=== PATIENT | male | born 1935 | race Caucasian/White ===

== ENCOUNTER 2019-08-04 12:39 | Outpatient (CLI) | payer MEDICARE, SELFPAY ==
--- NOTE | ~2019-08-04 | XR_ITS ---
XR chest 2V 08/04/2019 14:32 Indication: Shortness of breath and cough Procedure: 2 view chest Comparison: No prior studies for comparison. Findings: Cardiomegaly. Pacemaker lead in the right ventricle. No focal air space disease, pulmonary edema, pleural effusion or suspected pneumothorax. There are changes of the clavicle suggesting bilat eral osteotomy. No acute osseous abnormality. Impression: 1: No acute cardiopulmonary disease. Reviewed, dictated and finalized at location A. Impression: 1: No acute cardiopulmonary disease.
[2019-08-04 13:33] LABS: Blood Urea Nitrogen 18 mg/dL (9-20); Calcium 9.3 mg/dL (8.4-10.2); Carbon Dioxide 25 mmol/L (22-30); Chloride 104 mmol/L (98-107); Estimated Glomerular Filt Rate > 60; Glucose 136 mg/dL (75-110); Sodium 139 mmol/L (137-145)
[2019-08-04 13:42] LABS: NT Pro B Type Natriuretic Pept 1300 PG/ML (5-100)
--- NOTE | 2019-08-29 14:24 | PFT_ITS ---
This report was moved to the correct visit, [id number], on August 31, 2019. Original report was signed by Dr. Ling Pepper on August 29, 2019 at 1424. PFT Interpretation PFT Interpretation: DOS: 08/04/2019 REQUESTING: Dr. Jag Zhong REASON FOR TESTING: Shortness of breath PULMONARY FUNCTION TESTS Results are not reproducible or reliable. The patient was able to produce only one complete post flow volume loop with many attempts, with maximal coaching. Spirometry: FEV1 is 76%, 2.22 L, mildly reduced. FVC is 75%, mildly reduced. FEV1% is 64%, normal for age. VJN30-65% is severely decreased at 43%. After bronchodilator, there is no significant improvement in flows. Lung volumes: Total lung capacity is 79%, mildly decreased. RV is 72%, normal. No air trapping. Airway resistance is 572%, increased. Diffusion: DLCO is 59%, moderately reduced. Flow volume loop: Mild scooping of the expiratory limb. IMPRESSION: Mild restrictive pattern, mild obstructive ventilatory impairment without response to bronchodilator. Increased airway resistance. Lack of response to bronchodilator should not preclude use if clinically indicated. Clinical correlation is recommended as the patient was not able to produce reliable results. Ling Pepper MD Report Initialized date/time: Ling Pepper MD 08/29/19 / 1424 Electronically signed by: Ling Pepper MD 08/29/19 1424 [facility]
--- NOTE | 2019-08-29 14:30 | MISC_ITS ---
Six Minute Walk This report was moved to the correct visit, [id number], on August 31, 2019. Original report was signed by Dr. Ling Pepper on August 29, 2019 at 1430. Six Minute Walk Six Minute Walk: DOS: 08/04/2019 REQUESTING: Dr. Jag Zhong REASONS FOR TESTING: Shortness of breath SIX MINUTE WALK This test was performed per ATS guidelines. The patient had an initial saturation of 97% on room air, and his heart rate was 64 beats per minute. He walked using a cane. After 4 minutes of walking he had to stop walking due to severe back pain. His lowest saturation was 92%, and the highest heart rate was 99. He walked a total of 250 feet, 76 meters, which is less than expected for his age. After recovery, saturation was 98% and pulse was 70. IMPRESSION: The patient performed as well as possible, however was not able to walk more than 4 minutes due to back pain. He did not have marlen hypoxemia, and did not qualify for supplemental oxygen with exertion. Report Initialized date/time: Ling Pepper MD 08/29/19 / 1430 Electronically signed by: Ling Pepper MD 08/29/19 1430 [facility]
== END 2019-08-04 12:40 | disposition home or self-care (01) ==
PROVIDERS: Visit Provider Internal Medicine Critical Care Medicine
DX: R06.02 Shortness of breath (principal)
CPT/HCPCS: 36415; 71046; 80048; 83880; 94060; 94618; 94726; 94729

== ENCOUNTER 2019-08-19 11:41 | Outpatient (CLI) | payer MEDICARE, SELFPAY ==
[2019-08-19 13:41] LABS: Blood Urea Nitrogen 24 mg/dL (9-20); Calcium 9.3 mg/dL (8.4-10.2); Carbon Dioxide 25 mmol/L (22-30); Chloride 106 mmol/L (98-107); Estimated Glomerular Filt Rate > 60; Glucose 114 mg/dL (75-110); Potassium 4.5 mmol/L (3.4-5.0); Sodium 139 mmol/L (137-145)
[2019-08-19 13:44] LABS: NT Pro B Type Natriuretic Pept 1350 PG/ML (5-100)
--- NOTE | 2019-08-29 14:14 | WPDPFTINT ---
PFT Interpretation PFT Interpretation: DOS: 08/04/2019 REQUESTING: Dr. Jag Zhong REASON FOR TESTING: Shortness of breath PULMONARY FUNCTION TESTS Results are not reproducible or reliable. The patient was able to produce only one complete post flow volume loop with many attempts, with maximal coaching. Spirometry: FEV1 is 76%, 2.22 L, mildly reduced. FVC is 75%, mildly reduced. FEV1% is 64%, normal for age. OIA30-91% is severely decreased at 43%. After bronchodilator, there is no significant improvement in flows. Lung volumes: Total lung capacity is 79%, mildly decreased. RV is 72%, normal. No air trapping. Airway resistance is 572%, increased. Diffusion: DLCO is 59%, moderately reduced. Flow volume loop: Mild scooping of the expiratory limb. IMPRESSION: Mild restrictive pattern, mild obstructive ventilatory impairment without response to bronchodilator. Increased airway resistance. Lack of response to bronchodilator should not preclude use if clinically indicated. Clinical correlation is recommended as the patient was not able to produce reliable results. Ling Pepper MD
--- NOTE | 2019-08-29 14:24 | WPDSIXMINUTE ---
Six Minute Walk Six Minute Walk: DOS: 08/04/2019 REQUESTING: Dr. Jag Zhong REASONS FOR TESTING: Shortness of breath SIX MINUTE WALK This test was performed per ATS guidelines. The patient had an initial saturation of 97% on room air, and his heart rate was 64 beats per minute. He walked using a cane. After 4 minutes of walking he had to stop walking due to severe back pain. His lowest saturation was 92%, and the highest heart rate was 99. He walked a total of 250 feet, 76 meters, which is less than expected for his age. After recovery, saturation was 98% and pulse was 70. IMPRESSION: The patient performed as well as possible, however was not able to walk more than 4 minutes due to back pain. He did not have marlen hypoxemia, and did not qualify for supplemental oxygen with exertion.
== END 2019-08-19 11:42 | disposition home or self-care (01) ==
PROVIDERS: Visit Provider Internal Medicine Critical Care Medicine
DX: R06.02 Shortness of breath (principal)
CPT/HCPCS: 36415; 80048; 83880

== ENCOUNTER 2023-01-08 00:57 | Observation (INO) | payer MEDICARE, SELFPAY ==
[2023-01-08] VITALS (20 sets, daily range): BP systolic 104–170; BP diastolic 60–87; PULSE 81–100; RESP 14–24; TEMP 35.6–36.8; O2SAT 95–100; BMI 31.1
--- NOTE | 2023-01-08 | ECHO_ITS ---
Patient Info Name: Erwin Neville Age: 87 years : 1935 Gender: Male Ht: 74 in Wt: 230 lbs BSA: 2.35 m2 HR: 88 bpm BP: 108 / 70 mmHg Heart Rhythm: Sinus Rhythm Technical Quality: Fair Exam Date: 01/08/2023 10:44 AM Exam Location: Echo Lab Patient Status: Outpatient Admit Date: 01/08/2023 Staff Ordering Physician: Bayron Ceron DO Interior Design Professional: Sam Brown RDCS Attending Provider: Rosa Riddle DO Referring Physician: Osmany HUFF; Exam Type: CA echo doppler color flow Study Info Indications - elevated troponin Complete two-dimensional, color flow and Doppler transthoracic echocardiogram is performed. Summary 1. Complete two-dimensional, color flow and Doppler transthoracic echocardiogram is performed. 2. Left ventricular chamber dimension is mildly enlarged. 3. Left ventricular systolic function is moderately globally reduced, estimated at 40-45%. 4. There is moderate concentric increased left ventricular wall thickness. 5. The left ventricular diastolic function is abnormal. 6. E/e' 16 is elevated. 7. Linear artifact in right ventricle suggestive of catheter(s), pacemaker lead(s), or ICD lead(s). 8. Left atrial chamber dimension is moderately enlarged. 9. Right atrial chamber dimension is moderately enlarged. 10. Linear artifact in the right atrium suggestive of catheter(s), pacemaker lead(s), or ICD lead(s). 11. There is mild aortic valve sclerosis. 12. The mitral valve has mildly calcified annulus. 13. There is mild to moderate mitral valve regurgitation. 14. There is moderate tricuspid valve regurgitation. 15. Mild pulmonary hypertension, estimated pulmonary arterial systolic pressure is 43 mmHg. 16. Normal inferior vena cava with <50% collapse upon inspiration consistent with elevated right atrial pressure, 10 mmHg. Left Ventricle E/e' 16 is elevated. Left ventricular systolic function is moderately globally reduced, estimated at 40-45%. Left ventricular chamber dimension is mildly enlarged. There is moderate concentric increased left ventricular wall thickness. The left ventricular diastolic function is abnormal. Right Ventricle Linear artifact in right ventricle suggestive of catheter(s), pacemaker lead(s), or ICD lead(s). Right ventricular chamber dimension is normal. Right ventricular systolic function is normal. Left Atria Left atrial chamber dimension is moderately enlarged. Right Atria Linear artifact in the right atrium suggestive of catheter(s), pacemaker lead(s), or ICD lead(s). Right atrial chamber dimension is moderately enlarged. Aortic Valve The aortic valve is trileaflet. There is mild aortic valve sclerosis. There is no aortic valve stenosis. There is no aortic valve regurgitation. Pulmonic Valve There is no pulmonic regurgitation. Mitral Valve The mitral valve has mildly calcified annulus. There is no mitral valve stenosis. There is mild to moderate mitral valve regurgitation. Tricuspid Valve There is moderate tricuspid valve regurgitation. Mild pulmonary hypertension, estimated pulmonary arterial systolic pressure is 43 mmHg. Pericardium/Pleural There is no pericardial effusion. Inferior Vena Cava Normal inferior vena cava with <50% collapse upon inspiration consistent with elevated right atrial pressure, 10 mmHg. Aorta The aortic root size at the sinus of Valsalva is normal. Left Ventricular Outflow Tract Name Value Normal
--- NOTE | ~2023-01-08 | CT_ITS ---
Noncontrast CT scan of the cervical spine Technique: Multiple contiguous axial [address] images of the cervical spine were obtained and rec onstructed in 2D sagittal and coronal planes on the acquisition scanner. Dose reduction technique was used on this scan by utilizing automated exposure control, adjustment of the mA and/or kV according to patient size. The dose-length product (DLP) was 646.30 mGy-cm. Clinical History: Pain Findings: No fracture identified. There is 3 mm anterolisthesis of C7 over T1. There is moderate dege nerative disc narrowing throughout the cervical spine. There is advanced degenerative changes reticul ation of the odontoid process with the anterior arch of C1. At C2-C3, there is mild disc osteophyte complex. There is mild left facet arthropathy. No marlen centr al canal stenosis or neural foraminal narrowing. At C3-C4, there is disc osteophyte complex resulting in moderate canal stenosis and probable element of cord compression. There is bilateral neural foraminal narrowing, with bilateral facet arthropathy, left worse than right. At C4-C5, there is minimal disc osteophyte complex without marlen canal stenosis. There is bilateral n eural foraminal narrowing, with mild bilateral facet arthropathy. At C5-C6, there is mild disc osteophyte complex. There is bilateral neural foraminal narrowing with b ilateral facet arthropathy. At C6-C7, there is minimal bilateral neural foraminal narrowing with bilateral facet arthropathy. No marlen central canal stenosis. No prevertebral soft tissue swelling. Impression: No fracture. 3 mm anterolisthesis of C7 over T1. Moderate to advanced degenerative spondylosis. Findings are worst at C3-C4, where there is probable m oderate canal stenosis and element of cord compression. Multilevel neural foraminal narrowing present . Reviewed, dictated and finalized at location M. OL SERGEANT Impression: No fracture. 3 mm anterolisthesis of C7 over T1. Moderate to advanced degenerative spondylosis. Findings are worst at C3-C4, whe re there is probable moderate canal stenosis and element of cord compression. M ultilevel neural foraminal narrowing present.
--- NOTE | ~2023-01-08 | CT_ITS ---
CT head without contrast Indication: Trauma Technique: Serial scans were obtained through the brain without the administration of contrast. Dose reduction technique was used on this scan by utilizing automated exposure control and iterative recon struction technique. The dose-length product (DLP) was 681.00 mGy-cm. Findings: There is no evidence of intracranial hemorrhage, mass lesion, or acute infarct. The ventri cles and subarachnoid spaces are dilated, consistent with mild atrophy. Low attenuation regions are seen within the periventricular white matter bilaterally, likely representing changes from chronic mi crovascular ischemic disease. There is no evidence of edema, mass effect or midline shift. The visu alized paranasal sinuses and mastoid air cells are clear. Impression: No intracranial hemorrhage, mass, or acute infarct. Atrophy and chronic white matter changes, as above. Reviewed, dictated and finalized at location . TER TACKER Impression: No intracranial hemorrhage, mass, or acute infarct. Atrophy and chronic white matter changes, as above.
--- NOTE | ~2023-01-08 | CT_ITS ---
Clinical Indication: Pain CT Scan of the Chest, Abdomen, and Pelvis without Contrast: Technique: Contiguous sections were acquired throughout the chest, abdomen, and pelvis without IV con trast administration. Dose reduction technique was used on this scan by utilizing automated exposure control and iterative reconstruction technique. The dose-length product (DLP) was 1853.53 mGy-cm. Findings: There is no evidence of any significant mediastinal, hilar or axillary lymphadenopathy. The mediastin al soft tissues appear normal.. Pacemaker device present. There is no evidence of pleural or pericardial effusion. The lungs are clear. No pulmonary nodules or infiltrates are noted. 2 low-density hepatic lesions are most consistent with cysts. The spleen, gallbladder, adrenal glands are within normal limits. There is a 2.7 cm cystic-appearing mass arising from the uncinate process of the pancreas (axial image 166). Bilateral renal cysts are present. 3 mm left lower pole nonobstruc ting renal stone present. There are atherosclerotic calcifications of the aorta. No lymphadenopathy. No bowel obstruction or bowel wall thickening. There is no evidence to suggest acute appendicitis. Urinary bladder is unremarkable. Prostate gland is enlarged. Impression: No acute abnormality. Probable 2.7 cm cystic lesion arising from the uncinate process of the pancreas. Additional renal and hepatic cysts. 3 mm nonobstructing left renal stone. Enlarged prostate gland. Reviewed, dictated and finalized at [facility]. EMATICAL ENGINEER Impression: No acute abnormality. Probable 2.7 cm cystic lesion arising from the uncinate process of the pancreas . Additional renal and hepatic cysts. 3 mm nonobstructing left renal stone. Enlarged prostate gland.
--- NOTE | ~2023-01-08 | NM_ITS ---
EXAMINATION: NM christian stress w perfusion DATE: 01/09/2023 10:36 INDICATION: Elevated troponin. Back pain. TECHNIQUE: Rest images were obtained following intravenous administration of 11.11 mCi Tc99m tetrofos min (Myoview). The patient was infused intravenously with Lexiscan (regadenoson). Then, 35 mCi Tc99m tetrofosmin (Myoview) was administered intravenously, and stress images were obtained. Data was recon structed into short axis and horizontal and vertical long axis SPECT images. Gated SPECT images were also obtained. COMPARISON: Chest CT 01/08/2023 FINDINGS: There is a moderate-sized, mild, fixed perfusion defect involving apical to mid inferior wa ll and mid to basal inferolateral wall of left ventricle, consistent with infarct. No reversible comp onent to suggest ischemia. There is global hypokinesis.. Left ventricular ejection fraction measure s 39%. IMPRESSION: 1. Moderate-sized area of mild infarct involving apical to mid inferior wall and mid to basal inferol ateral wall of left ventricle. 2. Global hypokinesis with left ventricular ejection fraction measuring 39%. Reviewed, dictated and finalized at location A. CTOR OF SEARCH ENGINE OPTIMIZATION IMPRESSION: 1. Moderate-sized area of mild infarct involving apical to mid inferior wall an d mid to basal inferolateral wall of left ventricle. 2. Global hypokinesis with left ventricular ejection fraction measuring 39%.
[2023-01-08 01:52] LABS: Basophils Percent Auto 0.3 % (0.2-1.2); Eosinophils Absolute Auto 0.1 K/mm3 (0-0.3); Eosinophils Percent Auto 0.5 % (0-4.4); Hematocrit 38.2 % (42.0-52.0); Hemoglobin 11.8 g/dL (14.0-18.0); Immature Granulocyte Absolute 0.04 K/mm3 (0.00-0.031); Immature Granulocyte Percent A 0.3 % (0-0.5); Lymphocytes Absolute Auto 1.14 K/mm3 (0.9-3.2); Lymphocytes Percent Auto 8.9 % (18.3-44.2); Mean Corpuscular HGB Conc 30.9 g/dl (32-36); Mean Corpuscular Hemoglobin 31.8 pg (26-34); Mean Platelet Volume 9.8 fl (7.4-10.4); Monocytes Absolute Auto 0.8 K/mm3 (0.1-0.6); Monocytes Percent Auto 6.5 % (2.6-8.5); Neutrophils Absolute Auto 10.8 K/mm3 (1.3-6.7); Neutrophils Percent Auto 83.5 % (45.5-73.1); Platelet Count Result 252 k/mm3 (150-375); Red Blood Count 3.71 M/mm3 (4.6-6.20); Red Cell Distribution Width 13.8 % (11.5-14.5); White Blood Count 12.9 K/mm3 (4.5-10.0)
[2023-01-08 02:01] LABS: Alanine Aminotransferase 91 U/L (6-50); Albumin Level 3.9 g/dL (3.5-5.1); Alkaline Phosphatase 62 U/L (38-126); Anion Gap 15 mmol/L (8-16); Aspartate Amino Transferase 107 U/L (17-59); Blood Urea Nitrogen 32 mg/dL (9-20); Calcium 9.1 mg/dL (8.4-10.2); Carbon Dioxide 22 mmol/L (22-30); Chloride 102 mmol/L (98-107); Estimated Glomerular Filt Rate 38; Glucose 309 mg/dL (65-110); Potassium 4.1 mmol/L (3.4-5.0); Sodium 139 mmol/L (137-145)
[2023-01-08 02:14] LABS: Troponin I 0.171 ng/mL (0.000-0.034)
[2023-01-08 02:38] LABS: Add Urine Microscopic? YES; Appearance Urine Clear (Clear); Bacteria Urine None Seen /hpf; Bilirubin Urine Negative (Negative); Blood Urine Trace (Negative); Color Urine Yellow (Yellow); Glucose Urine UA 3+ mg/dL (Negative); Ketones Urine Negative (Negative); Leukocyte Esterase Ur Negative LEU/UL (Negative); Nitrate Urine Negative (Negative); Non Pathogenic Casts 0-2; Protein Urine 2+ mg/dL (Negative); RBC Urine 0-2 /hpf (0-2); Specific Grav Ur 1.015 (1.001-1.035); Squamous Epithelial Cell Urine None seen /hpf (Few); WBC Urine 0-5 /hpf; pH Urine 6.5 (5.0-9.0)
--- NOTE | 2023-01-08 02:57 | ED.FALL ---
HPI - Fall General Chief Complaint: Fall Stated Complaint: BACK PAIN S/P FALL Time Seen by Provider: 01/08/23 00:58 History of Present Illness HPI Narrative: Patient brought to the emergency department by EMS. He fell at home yesterday. States that he tripped. He is unsure exactly how he landed but knows that he fell backward. The patient hit his head and denies loss of consciousness. He has had persistent back pain since the fall. Denies new onset numbness or weakness. He has chronic urinary incontinence. Related Data Home Medications Medication Instructions Recorded Confirmed amlodipine 5 mg tablet 5 mg PO DAILY 07/27/19 ascorbic acid (vitamin C) 1,000 mg 1 gm PO DAILY 07/27/19 tablet aspirin 81 mg tablet,delayed 81 mg PO DAILY 07/27/19 release blood sugar diagnostic (Blood #10 ea 07/27/19 Glucose Test strips) cyanocobalamin (vitamin B-12) 250 250 mcg PO DAILY 07/27/19 mcg lozenges lancets 33 gauge (OneTouch Delica #100 ea 07/27/19 Lancets) metformin 500 mg tablet 500 mg PO BID 07/27/19 metoprolol tartrate 50 mg tablet 50 mg PO DAILY 07/27/19 omega-3 fatty acids 1,000 mg 1,000 mg PO DAILY 07/27/19 capsule ropinirole 0.5 mg tablet 0.5 mg PO DAILY 07/27/19 simvastatin 20 mg tablet 20 mg PO DAILY 07/27/19 furosemide 20 mg tablet 40 mg PO QAM 08/05/19 08/19/19 Allergies Allergy/AdvReac Type Severity Reaction Status Date / Time duloxetine Allergy Intermediate Hallucinati Verified 08/19/19 10:57 ng ARB-Angiotensin Receptor Allergy Mild Swelling Verified 08/19/19 10:57 Antagonist lisinopril Allergy Unknown unknown Verified 08/19/19 10:57 Review of Systems Review of Systems: I negative except what is documented in the HPI [facility] Past Medical History Medical History (Updated 01/08/23 @ 06:27 by Ramya Aguirre MD) Acute low back pain Diabetes mellitus without complication Dyspnea on exertion Osteoarthritis Primary osteoarthritis Family History Family History Mother Hypertension CHF (congestive heart failure) Father Diabetes mellitus Heart disease Malignant neoplasm of prostate Unknown Acute arthritis Social History Social History Smoking status: Unknown if ever smoked Exam Narrative: GENERAL: Well-appearing, well-nourished, and in no acute distress. HEAD: Normocephalic, atraumatic. EYES: PERRLA and EOMI. ENT: Nares clear, no rhinorrhea or epistaxis. Mucous membranes moist. NECK: Supple. CHEST: Clear to auscultation. No respiratory distress. HEART: Regular rate and rhythm. ABDOMEN: Soft, nontender, nondistended. EXTREMITIES: Normal range of motion. No edema. SKIN: Warm, dry, no rash. NEURO: No focal deficits. Alert and oriented x3. PSYCH: Normal mood and affect. Course Vital Signs Vital signs: Vital Signs Temperature 36.4 C 01/08/23 00:59 Pulse Rate 88 01/08/23 00:59 Respiratory Rate 14 01/08/23 00:59 Blood Pressure 109/69 01/08/23 00:59 Pulse Oximetry 100 01/08/23 00:59 Oxygen Delivery Room Air 01/08/23 00:59 Temperature 36.4 C 01/08/23 00:59 Pulse Rate 88 01/08/23 04:45 Respiratory Rate 14 01/08/23 04:45 Blood Pressure 108/70 01/08/23 04:45 Pulse Oximetry 96 01/08/23 04:45 Oxygen Delivery Room Air 01/08/23 00:59 MDM - Fall MDM Narrative Medical decision making narrative: Pt is admitted to the hospitalist EKG ordered and read as paced rhythm Lab Data 01/08/23 01:47 01/08/23 01:47 Labs: Lab Results 01/08/23 01/08/23 01/08/23 Range/Units 01:47 02:20 04:04 WBC 12.9 H (4.5-10.0) K/mm3 RBC 3.71 L (4.6-6.20) M/mm3 Hgb 11.8 L (14.0-18.0) g/dL Hct 38.2 L (42.0-52.0) % MCV 103.0 H (80-100) fl MCH 31.8 (26-34) pg MCHC 30.9 L (32-36) g/dl RDW 13.8 (11.5-14.5) % Plt Count 252 (150-3
[2023-01-08] MEDS: HEPARIN SOD/D5W 100 UNITS/ML 25,000 UNITS/250 ML BAG 10 UNITS IV CONT (03:41)
[2023-01-08] MEDS: HEPARIN SODIUM 5,000 UNITS/ML VIAL 4000 UNITS IV PUSH ×2 (03:41→10:41)
--- NOTE | 2023-01-08 04:10 | ECG_ITS ---
Measurements Intervals [place] Rate: 93 P: 256 PA: 269 QRS: 184 QRSD: 174 T: 0 QT: 428 QTc: 535 Interpretive Statements ELECTRONIC VENTRICULAR PACEMAKER FUSION COMPLEX AND FREQUENT VENTRICULAR PREMATURE COMPLEXES BASELINE ARTIFACT- II, III, AVF ABNORMAL ECG NO PREVIOUS ECG AVAILABLE FOR COMPARISON Electronically Signed On 01-08-2023 6:20:10 [employer] by Bayron Ceron D.O.
[2023-01-08 04:19] LABS: INR 1.2; Prothrombin Time 16.2 Seconds (11.1-14.7)
[2023-01-08 06:32] LABS: Troponin I 0.981 ng/mL (0.000-0.034)
--- NOTE | 2023-01-08 07:38 | PM.CNCAR ---
Assessment and Plan Assessment and plan (1) Elevated troponin: Code(s): R79.89 - Other specified abnormal findings of blood chemistry Status: Acute Assessment and Plan: Elevated and trending up 0.981. EKG shows paced ventricle. No symptoms to suggest ACS. Differential includes fall, acute on CKD, CAD. Heparin drip started in ED. Continue aspirin, Metoprolol, Simvastatin. Obtain echo. Trend troponin to peak. Discuss with patient and patient's about LHC and they are interested. Unknown his baseline kidney function but 3 years ago Cr was much better at 1.0. Will consult [facility] for consideration of LHC. (2) Acute on chronic renal insufficiency: Code(s): N28.9 - Disorder of kidney and ureter, unspecified; N18.9 - Chronic kidney disease, unspecified Status: Acute Assessment and Plan: Cr 1.7/GFR 38. Monitor. (3) Diabetes mellitus without complication: Code(s): E11.9 - Type 2 diabetes mellitus without complications Status: Acute Assessment and Plan: Managed by hospitalist. (4) Hypertension: Code(s): I10 - Essential (primary) hypertension Status: Acute Assessment and Plan: Stable. Continue home medication. (5) Dyslipidemia: Code(s): E78.5 - Hyperlipidemia, unspecified Status: Acute Assessment and Plan: On Simvastatin. (6) Pacemaker: Code(s): Z95.0 - Presence of cardiac pacemaker Status: Acute Assessment and Plan: [employer] pacemaker interrogated about a month ago at [facility] and is working fine per patient. His regular autos disassembler is Dr. Howard at [facility]. (7) Fall: Code(s): W19.XXXA - Unspecified fall, initial encounter Status: Acute Assessment and Plan: Due to gait instability. History of Present Illness History of Present Illness Consult date/time: 01/08/23 07:38 Reason For Visit: NSTEMI Narrative: 87 yr old man presents to ER after a fall. His regular autos disassembler is Dr. Howard at [facility]. He has a history of [employer] pacemaker implanted initially in probably 2006 and checked about a month ago, DM, hypertension, dyslipidemia, hard of hearing. He was moaning with back pain last night while trying to sleep. His gave him a Tylenol and called ambulance. 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 Sometimes he fell forward and yesterday he fell backwards. His children prompted him to seek medical attention for it so he came in. He can walk at least a block without any problems. Denies chest pain, sob, orthopnea, PND, edema, dizziness, palpitations. Review of Systems Review of Systems: All systems reviewed & are unremarkable except as noted in HPI and below Constitutional: Constitutional: Reports as per HPI, Denies chills and Denies fever(s) Cardiovascular: Cardiovascular: Reports as per HPI, Denies chest pain, Denies irregular heart rhythm, Denies leg edema and Denies lightheadedness Respiratory: Respiratory: Reports as per HPI and Denies dyspnea Gastrointestinal: Gastrointestinal: Reports as per HPI and Denies abdominal pain Genitourinary: Genitourinary: Reports as per HPI and Denies dysuria Musculoskeletal: Musculoskeletal: Reports as per HPI Neurologic: Reports as per HPI, Denies dizziness and Denies syncope [facility] Past Medical History Medical History (Updated 01/08/23 @ 07:44 by Bayron Ceron DO) Acute low back pain Diabetes mellitus without complication Dyspnea on exertion Osteoarthritis Primary osteoarthritis Family History Family History Mother Hypertension CHF (congestive heart failure) Father Diabetes mellitus Heart disease Malignant neoplasm of prostate Unknown Acute arthritis Social History Social History Smoking status: Unknown if ever smoked Meds Home Medications and Al
--- NOTE | 2023-01-08 07:46 | ADMGEN ---
This patient, Erwin Neville, was admitted to IMU Room 206-02. Patient/family oriented to hospital policies and general routines including ID bracelet, bed and alarms, visiting hours, pain management, procedures, bathroom and other care routines, personal items, smoking policy, room service/diet, and visiting hours. Information on how to activate the Rapid Response Team has been discussed. Patient/Family are encouraged to report perceived risks to care and to ask questions if they do not understand what they are told or what they should do.
[2023-01-08 09:45] LABS: Partial Thromboplastin Time 53.4 SECONDS (22.3-36.8)
--- NOTE | 2023-01-08 12:44 | PM.CNCAR ---
Assessment and Plan Assessment and plan (1) Fall: Code(s): W19.XXXA - Unspecified fall, initial encounter Status: Acute (2) Elevated troponin: Code(s): R79.89 - Other specified abnormal findings of blood chemistry Status: Acute Plan This is an 87-year-old man who has a chronically implanted pacemaker device does not report any history of coronary disease and is not reporting any symptoms compatible with or concerning for an acute coronary syndrome. Following a fall at home due to tripping he was found to have an elevation in his truck troponin levels and for that reason was apparently given the diagnosis of non ST elevation ND. with regards to performing a coronary angiogram I do not believe that this is the appropriate course of action at this time since he is asymptomatic and his clinical presentation is not at all suggestive of an acute coronary event in my opinion. This along with his renal insufficiency would keep me from performing an angiogram at this time. My clinical judgment is the benefit of the procedure is less than the risk regarding the possibility of contrast nephropathy in this asymptomatic elderly gentleman. If you wish to screen him for ischemic burden a Lexiscan nuclear stress test would be in my opinion of a reasonable choice. Since he is asymptomatic another option would be simply to allow him to be discharged and follow up with his established retail asset protection specialist where he receives his care chronically at [facility]. Radu Artis MD [facility] History of Present Illness History of Present Illness Consult date/time: 01/08/23 12:44 Reason For Visit: NSTEMI Narrative: This is an 87-year-old man we were requested to CC today by Dr. Bradley to consider performing a coronary angiogram. He is unknown to me prior to this encounter. This gentleman came to [facility] yesterday because of sustaining a fall in his home. The patient states he has had problems with frequent falling for about 5 or 6 months he typically trips on things in his home and then will take a fall he was unable unable to get up this time and so EMS was called and he was brought to the hospital for evaluation. He denies having any cardiac symptoms such as chest pain pressure or heaviness he denies any knowledge of prior history of coronary artery disease. He does follow with a retail asset protection specialist at [facility] because he has a chronically implanted pacemaker device. He states he has had a pacemaker for many years and relatively recently he had a generator change performed. We do not have any of those records at our disposal at the time of this consultation. For reasons that are not explained in the chart troponin levels were sampled following his admission and they did rise from normal to 1.2. His creatinine is elevated at 1.7. He did have a prior creatinine in our hospital several years ago that was normal. He does not received his medical care in this hospital recently and in this setting I am seeing him in consultation. Apparently because of the rise in his troponin he was given the diagnosis of non ST elevation ND and started on intravenous heparin. He he offers no other complaints at this time and is watching television when I came in the room to see him. Review of Systems Constitutional: Constitutional: Reports no additional constitutional complaints Eyes: Eyes: Reports no additional eye complaints ENT: Reports system reviewed and no additional complaints, except as documented Cardiovascular: Cardiovascular: Reports no additional cardiovascular complaints Respiratory: Respiratory: Reports no additional respiratory complaints Gastrointestinal: Gastrointestinal: Reports no additional gastrointestinal complaints Musculoskeletal: Comments: Occasional falling as mentioned above Integumentary/Breasts: Skin/Breast: Reports system reviewed and no additional complaints, except as docu Neurologic: Comment
--- NOTE | 2023-01-08 13:18 | PM.IMHP ---
H&P: [facility] History of Present Illness Date/Time: 01/08/23 13:18 Chief Complaint: fall at home Narrative: 87M w/ PMH congestive heart failure?, OA, NIDDM , PPM, presents after fall at home. he has fallen multiple times for 2 months, with new onset urinary retention and incontinence. he isn't the greatest historian, but can elicit that he tripped over his feet. he does admit to impaired gait which is new as well, along with longstanding numbness in hands and legs. the fall was unwitnessed and he isnt' sure if he lost consciousness. he denies neck pain at the moment. denies chest pain, sob Review of Systems Review of Systems: All systems reviewed & are unremarkable except as noted in HPI and below PMFSH Past Medical History Medical History (Updated 01/08/23 @ 13:32 by Jennifer Bergeron MD) Acute low back pain Diabetes mellitus without complication Dyspnea on exertion Osteoarthritis Primary osteoarthritis Family History Family History Mother Hypertension CHF (congestive heart failure) Father Diabetes mellitus Heart disease Malignant neoplasm of prostate Unknown Acute arthritis Social History Social History Smoking status: Never smoker Lack of Transportation: No Lack of Food: Never True Current Housing: I Have Housing Concerned About Future Housing: No Difficulty Paying Gas/Electric Bills: No Difficulty Paying for Meds: No Currently Unemployed: No Education: High School Diploma/GED Difficulty w/ Childcare or Family Care: No Spiritual care concerns: No Meds Home Medications and Allergies Home Medications Medication Instructions Recorded Confirmed Type ascorbic acid (vitamin C) 1,000 mg 1 gm PO DAILY 07/27/19 01/08/23 History tablet aspirin 81 mg tablet,delayed 81 mg PO DAILY 07/27/19 01/08/23 History release blood sugar diagnostic (Blood #10 ea 07/27/19 History Glucose Test strips) cyanocobalamin (vitamin B-12) 250 250 mcg PO DAILY 07/27/19 01/08/23 History mcg lozenges lancets 33 gauge (OneTouch Delica #100 ea 07/27/19 History Lancets) metformin 500 mg tablet 500 mg PO BID 07/27/19 01/08/23 History omega-3 fatty acids 1,000 mg 1,000 mg PO HS 07/27/19 01/08/23 History capsule ropinirole 0.5 mg tablet 0.5 mg PO HS PRN Restless Leg(S) 07/27/19 01/08/23 History simvastatin 20 mg tablet 20 mg PO DAILY 07/27/19 01/08/23 History bumetanide 2 mg tablet 2 mg PO Q12H 01/08/23 01/08/23 History carvedilol 12.5 mg tablet 12.5 mg PO Q12H 01/08/23 01/08/23 History empagliflozin 25 mg tablet 25 mg PO DAILY 01/08/23 01/08/23 History (Jardiance) fluticasone 232 mcg-salmeterol 14 2 inh inhalation DAILY 01/08/23 01/08/23 History mcg/actuation breath activated powdr sacubitril 24 mg-valsartan 26 mg 0.5 tablet PO Q12H 01/08/23 01/08/23 History tablet (Entresto) Allergies Allergy/AdvReac Type Severity Reaction Status Date / Time duloxetine Allergy Intermediate Hallucinati Verified 08/19/19 10:57 ng ARB-Angiotensin Receptor Allergy Mild Swelling Verified 08/19/19 10:57 Antagonist lisinopril Allergy Unknown unknown Verified 08/19/19 10:57 Vital Signs Vital Signs - 24 hr 01/08/23 00:59 01/08/23 02:48 01/08/23 04:45 Temperature 97.6 F Pulse Rate 88 100 88 Respiratory Rate 14 16 14 Blood Pressure 109/69 107/62 108/70 Pulse Oximetry 100 100 96 Oxygen Delivery Room Air 01/08/23 05:00 01/08/23 06:00 01/08/23 07:12 Temperature Pulse Rate 88 89 90 Respiratory Rate 24 H 19 20 Blood Pressure 113/70 105/73 104/66 Pulse Oximetry 98 100 99 Oxygen Delivery 01/08/23 07:30 01/08/23 08:46 01/08/23 08:00 Temperature 96.2 F L Pulse Rate 90 91 Respiratory Rate 16 24 H Blood Pressure 104/66 120/87 Pulse Oximetry 97 95 100 Oxygen Delivery Room Air 01/08/23 08:00 01/08/23 12:43 01/08/23 08:55 Temperature 96
[2023-01-08 13:22] LABS: Basophils Percent Auto 0.3 % (0.2-1.2); Eosinophils Absolute Auto 0.1 K/mm3 (0-0.3); Eosinophils Percent Auto 1.1 % (0-4.4); Hematocrit 37.8 % (42.0-52.0); Hemoglobin 11.7 g/dL (14.0-18.0); Immature Granulocyte Absolute 0.03 K/mm3 (0.00-0.031); Immature Granulocyte Percent A 0.3 % (0-0.5); Lymphocytes Absolute Auto 1.51 K/mm3 (0.9-3.2); Lymphocytes Percent Auto 16.8 % (18.3-44.2); Mean Corpuscular Hemoglobin 31.7 pg (26-34); Mean Corpuscular Volume 102.4 fl (80-100); Mean Platelet Volume 9.8 fl (7.4-10.4); Neutrophils Absolute Auto 6.3 K/mm3 (1.3-6.7); Neutrophils Percent Auto 70.5 % (45.5-73.1); Platelet Count Result 236 k/mm3 (150-375); Red Blood Count 3.69 M/mm3 (4.6-6.20); Red Cell Distribution Width 13.9 % (11.5-14.5)
[2023-01-08 13:31] LABS: Anion Gap 13 mmol/L (8-16); Blood Urea Nitrogen 33 mg/dL (9-20); Calcium 9.1 mg/dL (8.4-10.2); Carbon Dioxide 22 mmol/L (22-30); Chloride 102 mmol/L (98-107); Estimated CRCL calculation 35 ml/min; Estimated Glomerular Filt Rate 36; Glucose 221 mg/dL (65-110); Magnesium 2.6 mg/dL (1.6-2.3); Potassium 3.9 mmol/L (3.4-5.0); Sodium 137 mmol/L (137-145)
[2023-01-08 13:40] LABS: NT Pro B Type Natriuretic Pept 4290 pg/mL (19.9-100)
[2023-01-08 14:08] LABS: Procalcitonin 0.2 ng/mL
[2023-01-08] MEDS: ASCORBIC ACID 500 MG TABLET 1000 MG PO (14:41)
[2023-01-08] MEDS: BUMETANIDE 1 MG TABLET 2 MG PO ×2 (14:41→20:45)
[2023-01-08] MEDS: carvediloL 12.5 MG TABLET PO ×2 (14:41→17:32)
[2023-01-08] MEDS: SIMVASTATIN 20 MG TABLET 40 MG PO (14:42)
[2023-01-08] MEDS: CYANOCOBALAMIN 250 MCG TABLET PO (14:42)
[2023-01-08] MEDS: ASPIRIN 81 MG ENTERIC TABLET PO (14:42)
[2023-01-08] MEDS: SODIUM CHLORIDE 0.9% IV 500 ML 999 ML IV CONT (17:35)
[2023-01-08 18:23] LABS: Partial Thromboplastin Time 105.6 SECONDS (22.3-36.8)
[2023-01-08] MEDS: FUROSEMIDE INJ 40 MG/4 ML VIAL IV PUSH (19:08)
[2023-01-08 23:56] LABS: Partial Thromboplastin Time 66.7 SECONDS (22.3-36.8)
[2023-01-09] VITALS (22 sets, daily range): BP systolic 113–135; BP diastolic 62–85; PULSE 84–93; RESP 20–22; TEMP 35.7–36.6; O2SAT 97–99
--- NOTE | 2023-01-09 | EST_ITS ---
Patient Info Name: Erwin Neville Age: 87 years : 1935 Gender: Male Ht: 74 in Wt: 242 lbs BSA: 2.42 m2 HR: 92 bpm BP: 91 / 73 mmHg Exam Date: 01/09/2023 8:43 AM Exam Location: Echo Lab Patient Status: Inpatient Admit Date: 01/08/2023 Staff Ordering Physician: Jennifer Bergeron MD Attending Provider: Rosa Riddle DO Exercise Technologist: Adelaida Padron CT Exercise Physician: Bayron Ceron DO Exam Type: CA stress christian w NM Study Info A regadenoson stress test was performed. Summary 1. 1. Inconclusive lexiscan stress test for ischemic ST changes by ECG criteria due to paced ventricular rhythm. 2. 2. Stable hemodynamics throughout the test. 3. 3. Nuclear scan to follow and will be reported separately. Please correlate with it. 4. 4. Patient informed of the above results. Protocol: Lexiscan Stress ECG Details Stage: REST Duration (min): 1 min : 42 sec HR (bpm): 94 SBP (mmHg): 91 DBP (mmHg): 73 Stage: REST Duration (min): 8 min : 59 sec HR (bpm): 89 SBP (mmHg): 91 DBP (mmHg): 73 Stage: STAGE 1 Duration (min): 0 min : 59 sec HR (bpm): 89 SBP (mmHg): 97 DBP (mmHg): 65 Stage: RECOVERY Duration (min): 1 min : 0 sec HR (bpm): 92 SBP (mmHg): 97 DBP (mmHg): 65 Stage: RECOVERY Duration (min): 2 min : 0 sec HR (bpm): 91 SBP (mmHg): 97 DBP (mmHg): 65 Stage: RECOVERY Duration (min): 3 min : 0 sec HR (bpm): 88 SBP (mmHg): 98 DBP (mmHg): 69 Rest HR: 89 bpm Peak HR: 96 bpm Rest Sys BP: 91 mmHg Peak Sys BP: 98 mmHg Max Pred HR: 134 bpm % Max Pred HR: 72 % Target HR: 114 bpm Max RPP: 9,408 bpm*mmHg Termination Reason: Completed protocol Cardiac Symptoms: None Total Time: 1 min : 0 sec Rest Aparicio BP: 73 mmHg Peak Aparicio BP: 69 mmHg Total Dose: 0.4 mg Resting ECG Ventricular paced rhythm, PVC's. Stress ECG No ST changes. Arrhythmias None. Report Signatures
[2023-01-09] MEDS: FUROSEMIDE INJ 40 MG/4 ML VIAL IV PUSH (00:15)
[2023-01-09] MEDS: HEPARIN SOD/D5W 100 UNITS/ML 25,000 UNITS/250 ML BAG 16 UNITS IV CONT (00:18)
[2023-01-09 05:45] LABS: Basophils Percent Auto 0.4 % (0.2-1.2); Eosinophils Absolute Auto 0.1 K/mm3 (0-0.3); Eosinophils Percent Auto 1.6 % (0-4.4); Hematocrit 36.1 % (42.0-52.0); Hemoglobin 11.2 g/dL (14.0-18.0); Immature Granulocyte Absolute 0.03 K/mm3 (0.00-0.031); Immature Granulocyte Percent A 0.4 % (0-0.5); Lymphocytes Absolute Auto 1.64 K/mm3 (0.9-3.2); Lymphocytes Percent Auto 21.5 % (18.3-44.2); Mean Corpuscular Hemoglobin 31.5 pg (26-34); Mean Corpuscular Volume 101.7 fl (80-100); Mean Platelet Volume 9.7 fl (7.4-10.4); Monocytes Absolute Auto 0.9 K/mm3 (0.1-0.6); Monocytes Percent Auto 11.5 % (2.6-8.5); Neutrophils Absolute Auto 4.9 K/mm3 (1.3-6.7); Neutrophils Percent Auto 64.6 % (45.5-73.1); Platelet Count Result 221 k/mm3 (150-375); Red Blood Count 3.55 M/mm3 (4.6-6.20); Red Cell Distribution Width 13.5 % (11.5-14.5); White Blood Count 7.6 K/mm3 (4.5-10.0)
[2023-01-09 05:59] LABS: Anion Gap 11 mmol/L (8-16); Blood Urea Nitrogen 28 mg/dL (9-20); Calcium 8.3 mg/dL (8.4-10.2); Carbon Dioxide 24 mmol/L (22-30); Chloride 105 mmol/L (98-107); Estimated CRCL calculation 42 ml/min; Estimated Glomerular Filt Rate 44; Glucose 166 mg/dL (65-110); Magnesium 2.6 mg/dL (1.6-2.3); Partial Thromboplastin Time 70.5 SECONDS (22.3-36.8); Potassium 3.5 mmol/L (3.4-5.0); Sodium 140 mmol/L (137-145)
[2023-01-09 06:21] LABS: Procalcitonin 0.2 ng/mL
--- NOTE | 2023-01-09 07:44 | PM.PNCARD ---
Progress Note: A&P Assessment and Plan (1) Elevated troponin: Code(s): R79.89 - Other specified abnormal findings of blood chemistry Status: Acute Assessment and Plan: Elevated and peaked at 1.47. EKG shows paced ventricle. No symptoms to suggest ACS. Differential includes fall, acute on CKD, CAD. Heparin drip started in ED. Continue aspirin, Metoprolol, Simvastatin. 01/08/23 Echo: EF 40-45%, mild LVE, mod LVH, diastolic dysfunction with E/e' 16, mod biatrial enlargement, mild-mod MR, mod TR, RVSP 43 mmHg. Consulted [facility] for consideration of LHC and appreciate Dr. Artis's evaluation. No LHC for now and obtain Lexiscan myoview stress. Unknown his baseline kidney function but 3 years ago Cr was much better at 1.0. Since troponin peaked, stop heparin drip. (2) Acute on chronic renal insufficiency: Code(s): N28.9 - Disorder of kidney and ureter, unspecified; N18.9 - Chronic kidney disease, unspecified Status: Acute Assessment and Plan: Cr 1.7/GFR 38. Monitor. (3) Diabetes mellitus without complication: Code(s): E11.9 - Type 2 diabetes mellitus without complications Status: Acute Assessment and Plan: Managed by hospitalist. (4) Hypertension: Code(s): I10 - Essential (primary) hypertension Status: Acute Assessment and Plan: Stable. Continue home medication. (5) Dyslipidemia: Code(s): E78.5 - Hyperlipidemia, unspecified Status: Acute Assessment and Plan: On Simvastatin. (6) Pacemaker: Code(s): Z95.0 - Presence of cardiac pacemaker Status: Acute Assessment and Plan: [employer] pacemaker interrogated about a month ago at [facility] and is working fine per patient. His regular cheesemaker helper is Dr. Howard at [facility]. (7) Fall: Code(s): W19.XXXA - Unspecified fall, initial encounter Status: Acute Assessment and Plan: Due to gait instability. Subjective Date/time seen: 01/09/23 07:44 Interval history: No chest pains. Has mild sob this morning. Exam Const: General: cooperative, healthy appearing and comfortable Orientation/consciousness: oriented to person, oriented to place and oriented to time Resp: Auscultation: clear to auscultation bilaterally, no crackles, no rales, no rhonchi and no wheezes Cardio: Rate: regular rate Rhythm: regular rhythm Heart sounds: no murmurs Peripheral pulses: dorsalis pedis present Neuro: General: oriented to person, oriented to place and oriented to time Extrem: Right lower extremity: no edema Left lower extremity: no edema Objective Data Vital Signs Vital Signs: Vital Signs - 24 hr 01/08/23 08:46 01/08/23 08:00 01/08/23 08:00 Temperature 96.2 F L Pulse Rate 91 Respiratory Rate 24 H Blood Pressure 120/87 Pulse Oximetry 95 100 Oxygen Delivery Room Air Room Air 01/08/23 12:43 01/08/23 12:00 01/08/23 12:00 Temperature 96.1 F L Pulse Rate 89 81 Respiratory Rate 22 H Blood Pressure 170/60 H Pulse Oximetry 100 Oxygen Delivery Room Air 01/08/23 08:00 01/08/23 14:00 01/08/23 17:32 Temperature Pulse Rate 84 88 90 Respiratory Rate Blood Pressure Pulse Oximetry Oxygen Delivery 01/08/23 18:00 01/08/23 16:00 01/08/23 16:00 Temperature 96.5 F L Pulse Rate 93 92 Respiratory Rate 18 Blood Pressure 117/73 Pulse Oximetry 99 Oxygen Delivery Room Air 01/08/23 18:00 01/08/23 19:49 01/08/23 20:00 Temperature 97.7 F Pulse Rate 88 95 90 Respiratory Rate 22 H Blood Pressure 115/83 Pulse Oximetry 97 Oxygen Delivery 01/08/23 20:00 01/08/23 22:00 01/08/23 23:07 Temperature 98.2 F Pulse Rate 88 88 Respiratory Rate 20 Blood Pressure 116/74 Pulse Oximetry 98 Oxygen Delivery Room Air 01/09/23 00:00 01/09/23 00:00 01/09/23 02:00 Temperature Pulse Rate 90 90 Respiratory Rate Blood Pressure Pulse Oximetry Oxygen Delivery Room Air
[2023-01-09] MEDS: BUMETANIDE 1 MG TABLET 2 MG PO ×2 (10:58→20:09)
[2023-01-09] MEDS: SIMVASTATIN 20 MG TABLET 40 MG PO (10:58)
[2023-01-09] MEDS: carvediloL 12.5 MG TABLET PO ×2 (10:59→17:21)
[2023-01-09] MEDS: ASCORBIC ACID 500 MG TABLET 1000 MG PO (10:59)
[2023-01-09] MEDS: CYANOCOBALAMIN 250 MCG TABLET PO (10:59)
[2023-01-09] MEDS: ASPIRIN 81 MG ENTERIC TABLET PO (10:59)
--- NOTE | 2023-01-09 11:05 | PCPTNOTE ---
Attempted PT evaluation, pt going to get bed bath at this time. Tech requested therapist return at later time. RN aware. Will follow.
[2023-01-09 11:18] LABS: Glucose Point of Care 191 mg/dl (65-105)
[2023-01-09 12:04] LABS: Partial Thromboplastin Time 95.6 SECONDS (22.3-36.8)
--- NOTE | 2023-01-09 18:32 | PM.IMPN ---
Progress Note: A&P Assessment and Plan (1) RASHMI (acute kidney injury): Code(s): N17.9 - Acute kidney failure, unspecified Status: Acute (2) Fall: Code(s): W19.XXXA - Unspecified fall, initial encounter Status: Acute (3) Pacemaker: Code(s): Z95.0 - Presence of cardiac pacemaker Status: Acute (4) Dyslipidemia: Code(s): E78.5 - Hyperlipidemia, unspecified Status: Acute (5) Hypertension: Code(s): I10 - Essential (primary) hypertension Status: Acute (6) Diabetes mellitus without complication: Code(s): E11.9 - Type 2 diabetes mellitus without complications Status: Acute (7) Elevated troponin: Code(s): R79.89 - Other specified abnormal findings of blood chemistry Status: Acute Plan pt symptomatology improved. troponin downtrended. lexiscan positive. will need to optimize kidney function and re-discuss heart cath. cont aspiring statin and beta courtney. bnp elevated on admission, he did appear dry so was given fluids. ensuing further deterioration of renal function. lasix 40mg iv x2 given with good UOP and improvement of RASHMI. will continue his home dose bumetanide and start fluid restriction. he was noncompliant with dietary recs at home, in fact, him and his had no idea he was being treated for heart failure. appreciate further cardiology recs for HFrEF mgmt. consult nephrology as well to assist in optimization. 30+ minutes spent in discussion with family stable. full code Subjective Date/time seen: 01/09/23 18:32 Interval history: NAOE. pt is without complaints today. Review of Systems Review of Systems: All systems reviewed & are unremarkable except as noted in HPI and below Exam Const: General: comfortable and no acute distress Other: obese Eyes: Pupils: Equal, round and reactive pupils present Resp: Effort & Inspection: normal respiratory effort Auscultation: crackles (scant, bibasilar) Cardio: Rate: regular rate Rhythm: regular rhythm Heart sounds: no gallops, no murmurs and no rubs GI: GI Palp: Yes Soft to palpation and No Tenderness to palpation present (GI) Extrem: General: no edema Objective Data Vital Signs Vital Signs: Vital Signs - 24 hr 01/08/23 19:49 01/08/23 20:00 01/08/23 20:00 Temperature 97.7 F Pulse Rate 95 90 Respiratory Rate 22 H Blood Pressure 115/83 Pulse Oximetry 97 Oxygen Delivery Room Air 01/08/23 22:00 01/08/23 23:07 01/09/23 00:00 Temperature 98.2 F Pulse Rate 88 88 90 Respiratory Rate 20 Blood Pressure 116/74 Pulse Oximetry 98 Oxygen Delivery 01/09/23 00:00 01/09/23 02:00 01/09/23 03:37 Temperature 97.9 F Pulse Rate 90 84 Respiratory Rate 20 Blood Pressure 121/62 Pulse Oximetry 97 Oxygen Delivery Room Air 01/09/23 03:57 01/09/23 03:58 01/09/23 06:00 Temperature Pulse Rate 88 92 Respiratory Rate Blood Pressure Pulse Oximetry Oxygen Delivery Room Air 01/09/23 07:38 01/09/23 09:02 01/09/23 10:59 Temperature 97.7 F Pulse Rate 86 89 Respiratory Rate 20 Blood Pressure 123/81 Pulse Oximetry 98 98 Oxygen Delivery Room Air 01/09/23 08:00 01/09/23 10:00 01/09/23 08:00 Temperature Pulse Rate 90 93 Respiratory Rate Blood Pressure Pulse Oximetry 98 Oxygen Delivery Room Air 01/09/23 11:55 01/09/23 12:00 01/09/23 12:00 Temperature 96.8 F L Pulse Rate 89 89 Respiratory Rate 20 Blood Pressure 113/80 Pulse Oximetry 98 97 Oxygen Delivery Room Air 01/09/23 14:00 01/09/23 15:43 01/09/23 16:00 Temperature 96.2 F L Pulse Rate 89 87 Respiratory Rate 22 H Blood Pressure 119/79 Pulse Oximetry 99 98 Oxygen Delivery Room Air 01/09/23 17:21 Temperature Pulse Rate 89 Respiratory Rate Blood Pressure Pulse Oximetry Oxygen Delivery Intake/Output Intake/Output: Intake & Output 01/06/23 01/07/23 01/08/23 01/09/23
[2023-01-09 18:58] LABS: Glucose Point of Care 188 mg/dl (65-105)
[2023-01-09 19:55] LABS: Glucose Point of Care 185 mg/dl (65-105)
[2023-01-09] MEDS: FLUTICASONE/SALMETEROL 230-21 MCG INHALER 1 PUFF 2 PUFF INHALATION (19:57)
[2023-01-09] MEDS: HEPARIN SODIUM 5,000 UNITS/ML VIAL 5000 UNITS SUB-Q (21:23)
[2023-01-10] VITALS (16 sets, daily range): BP systolic 88–122; BP diastolic 52–82; PULSE 61–98; RESP 16–22; TEMP 35.6–36.6; O2SAT 94–100
[2023-01-10] MEDS: HEPARIN SODIUM 5,000 UNITS/ML VIAL 5000 UNITS SUB-Q ×3 (05:03→21:20)
[2023-01-10 05:36] LABS: Hematocrit 38.6 % (42.0-52.0); Hemoglobin 11.7 g/dL (14.0-18.0); Mean Corpuscular HGB Conc 30.3 g/dl (32-36); Mean Corpuscular Hemoglobin 31.6 pg (26-34); Mean Corpuscular Volume 104.3 fl (80-100); Mean Platelet Volume 9.9 fl (7.4-10.4); Platelet Count Result 236 k/mm3 (150-375); Red Cell Distribution Width 13.6 % (11.5-14.5); White Blood Count 9.3 K/mm3 (4.5-10.0)
[2023-01-10 06:09] LABS: Anion Gap 14 mmol/L (8-16); Blood Urea Nitrogen 30 mg/dL (9-20); Calcium 8.7 mg/dL (8.4-10.2); Carbon Dioxide 21 mmol/L (22-30); Chloride 105 mmol/L (98-107); Estimated CRCL calculation 42 ml/min; Estimated Glomerular Filt Rate 44; Glucose 153 mg/dL (65-110); Magnesium 2.6 mg/dL (1.6-2.3); Potassium 3.6 mmol/L (3.4-5.0); Sodium 140 mmol/L (137-145)
[2023-01-10 07:45] LABS: Glucose Point of Care 158 mg/dl (65-105)
--- NOTE | 2023-01-10 08:03 | PM.PNCARD ---
Progress Note: A&P Assessment and Plan (1) Elevated troponin: Code(s): R79.89 - Other specified abnormal findings of blood chemistry Status: Acute Assessment and Plan: Elevated and peaked at 1.47. EKG shows paced ventricle. No symptoms to suggest ACS. Differential includes fall, acute on CKD, CAD. Heparin drip started in ED. Continue aspirin, Metoprolol, Simvastatin. 01/08/23 Echo: EF 40-45%, mild LVE, mod LVH, diastolic dysfunction with E/e' 16, mod biatrial enlargement, mild-mod MR, mod TR, RVSP 43 mmHg. Consulted [facility] for consideration of LHC and appreciate Dr. Artis's evaluation. No LHC for now and obtain Lexiscan myoview stress. 01/09/23 Lexiscan myoview shows no reversible ischemia; only fixed defects in apical to mid inferior and fixed defect in mid to basal inferolateral segments from prior infarct or scar. Unknown his baseline kidney function but 3 years ago Cr was much better at 1.0. Since troponin peaked, stopped heparin drip. Discuss with patient, no need for LHC. May d/c home from cardiology standpoint and f/u with his regular federal mediation commissioner, Dr. Howard at [facility]. (2) Acute on chronic renal insufficiency: Code(s): N28.9 - Disorder of kidney and ureter, unspecified; N18.9 - Chronic kidney disease, unspecified Status: Acute Assessment and Plan: Cr 1.7/GFR 38. Monitor. (3) Diabetes mellitus without complication: Code(s): E11.9 - Type 2 diabetes mellitus without complications Status: Acute Assessment and Plan: Managed by hospitalist. (4) Hypertension: Code(s): I10 - Essential (primary) hypertension Status: Acute Assessment and Plan: Stable. Continue home medication. (5) Dyslipidemia: Code(s): E78.5 - Hyperlipidemia, unspecified Status: Acute Assessment and Plan: On Simvastatin. (6) Pacemaker: Code(s): Z95.0 - Presence of cardiac pacemaker Status: Acute Assessment and Plan: [employer] pacemaker interrogated about a month ago at [facility] and is working fine per patient. His regular federal mediation commissioner is Dr. Howard at [facility]. (7) Fall: Code(s): W19.XXXA - Unspecified fall, initial encounter Status: Acute Assessment and Plan: Due to gait instability. (8) Systolic dysfunction: Code(s): I51.9 - Heart disease, unspecified Status: Acute Assessment and Plan: Euvolemic. 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 He is on home medication Carvedilol, Bumetanide. Subjective Date/time seen: 01/10/23 08:03 Interval history: No chest pains or SOB. Exam Const: General: cooperative, healthy appearing and comfortable Orientation/consciousness: oriented to person, oriented to place and oriented to time Resp: Auscultation: clear to auscultation bilaterally, no crackles, no rales, no rhonchi and no wheezes Cardio: Rate: regular rate Rhythm: regular rhythm Heart sounds: no murmurs Peripheral pulses: dorsalis pedis present Neuro: General: oriented to person, oriented to place and oriented to time Extrem: Right lower extremity: no edema Left lower extremity: no edema Objective Data Vital Signs Vital Signs: Vital Signs - 24 hr 01/09/23 09:02 01/09/23 10:59 01/09/23 10:00 Temperature 97.7 F Pulse Rate 86 89 93 Respiratory Rate 20 Blood Pressure 123/81 Pulse Oximetry 98 Oxygen Delivery 01/09/23 11:55 01/09/23 12:00 01/09/23 12:00 Temperature 96.8 F L Pulse Rate 89 89 Respiratory Rate 20 Blood Pressure 113/80 Pulse Oximetry 98 97 Oxygen Delivery Room Air 01/09/23 14:00 01/09/23 15:43 01/09/23 16:00 Temperature 96.2 F L Pulse Rate 89 87 Respiratory Rate 22 H Blood Pressure 119/79 Pulse Oximetry 99 98 Oxygen Delivery Room Air 01/09/23 17:21 01/09/23 16:00 01/09/23 18:00 Temperature Pulse Rate 89 90 89 Respiratory Rate Blood Pre
[2023-01-10] MEDS: FLUTICASONE/SALMETEROL 230-21 MCG INHALER 1 PUFF 2 PUFF INHALATION ×2 (08:17→20:01)
--- NOTE | 2023-01-10 09:50 | PC.NURSE ---
BP of 88/56 to left arm, 112/63 right arm reviewed with Dr. Ceron. New orders noted to decrease Coreg to 6.25 mg. Ok to give Coreg, Bumex, and Entresto if SBP > 90.
[2023-01-10] MEDS: SACUBITRIL/VALSARTAN 12-13 MG TABLET 1 TAB PO ×2 (10:08→21:22)
[2023-01-10] MEDS: CYANOCOBALAMIN 250 MCG TABLET PO (10:08)
[2023-01-10] MEDS: carvediloL 6.25 MG TABLET PO ×2 (10:08→21:19)
[2023-01-10] MEDS: ASPIRIN 81 MG ENTERIC TABLET PO (10:08)
[2023-01-10] MEDS: ASCORBIC ACID 500 MG TABLET 1000 MG PO (10:08)
[2023-01-10] MEDS: EMPAGLIFLOZIN 10 MG TABLET PO (10:09)
[2023-01-10] MEDS: SIMVASTATIN 20 MG TABLET 40 MG PO (10:09)
[2023-01-10] MEDS: BUMETANIDE 1 MG TABLET 2 MG PO ×2 (10:09→21:18)
[2023-01-10 12:26] LABS: Glucose Point of Care 204 mg/dl (65-105)
[2023-01-10] MEDS: INSULIN ASPART (*BKC) 100 UNITS/ML SUB-Q (13:00)
--- NOTE | 2023-01-10 13:01 | PM.CNNEP ---
Assessment and Plan Assessment and plan (1) Renal insufficiency: Code(s): N28.9 - Disorder of kidney and ureter, unspecified Status: Chronic Assessment and Plan: renal function normal ~ 3 years ago presented with creatinine of 1.7mg/dl and down to 1.5mg/dl by AM labs suspect he probably has some underlying CKD at baseline (due to HTN, DM, vascular disease, and age-related change) admission CT scan with bilateral renal cysts are present. 3 mm left lower pole nonobstructing renal stone present. would proceed with further testing but the patient is no really interested in doing so at this time follow trend of repeat labs and UOP (2) Elevated troponin: Code(s): R79.89 - Other specified abnormal findings of blood chemistry Status: Acute Assessment and Plan: noted since admission Cardiology recommendations noted positive lexiscan consideration of [place] but #1 is a concern contiue medical management follows with Cardiology at [facility] (3) Hypertension: Code(s): I10 - Essential (primary) hypertension Status: Chronic Assessment and Plan: reasonable control follow trend of hemodynamics (4) Diabetes mellitus without complication: Code(s): E11.9 - Type 2 diabetes mellitus without complications Status: Chronic Assessment and Plan: follow acc-cheks glycemic control per hospitalists I will continue to follow the patient with you while he remains hospitalized and make further recommendations as needed. Thank you for allowing me to participate in the care of this patient. History of Present Illness Reason for Consult Consult date: 01/10/23 Reason for consult: chronic renal failure Chief Complaint Chief complaint: NSTEMI History of Present Illness Narrative: The patient is not the best historian and a great majority of the information that I have obtained is from review of the electronic medical record as well as discussion with the physician/ nurses involved in the patient's care. The patient is an 87-year-old male with a past medical history as outlined below who presented to [facility] Emergency room status post falls. The patient apparently has had multiple falls over last few months. He apparently has also had issues and problems with urinary retention and incontinence as well as an abnormal gait. He reports that this most recent fall occurred because he tripped over his feet. The fall was apparently unwitnessed it is unclear if he lost consciousness or not. Following the fall, he reported no acute discomfort or pain. Workup and evaluation in the emergency room demonstrated the patient to be hemodynamically stable but he was noted to have elevated troponins. Routine blood tests were significant for an elevated BUN and creatinine but is unclear what his baseline renal function HIS as a last labs that are available are from approximately three years ago. Given his falls in conjunction with his elevated troponin and renal insufficiency, he was admitted to the hospital for further evaluation and therapy. Since his admission, he has been seen in consultation by Cardiology as there was some discussion about performing a left heart catheterization. However this was ultimately deferred in favor of a Lexiscan stress test which has come back positive. The initial plan was to proceed with left heart catheterization but apparently, after scratch with family, more conservative approach is being considered. With the possibility of left heart catheterization, renal consultation was requested due to his elevated creatinine / renal insufficiency. As mentioned, there is a three year gap of recent labs to compare to with regard to his kidney function. The his labs prior to this hospitalization were well within normal limits but on presentation, his creatinine was 1.7 and even with the need for diuresis given his mild heart failure, his cre
--- NOTE | 2023-01-10 14:56 | PM.IMPN ---
Progress Note: A&P Assessment and Plan (1) RASHMI (acute kidney injury): Code(s): N17.9 - Acute kidney failure, unspecified Status: Acute (2) Systolic dysfunction: Code(s): I51.9 - Heart disease, unspecified Status: Acute (3) Elevated troponin: Code(s): R79.89 - Other specified abnormal findings of blood chemistry Status: Acute Plan cont tele, daily weights with fluid restriction. cont bumex. plan for d/c to rehab tomorrow . optimized medically. no reversible defects on lexiscan. f/u as outpatient with cardiology and pcp. 15 minutes spent in dicussions with family and counseling patient trend BMP. More than 25 minutes spent on chart review, patient interaction and assessment and plan. Subjective Date/time seen: 01/10/23 14:56 Interval history: NAOE. daughter and son at bedside. an abundance of questions were answered. his plan discussed in depth. pt feels better today. he seems in reason to go to therapy and it has been recounted that it would be ill advised for him to not participate with therapy. counseling provided on dietary restrictions for CHF Review of Systems Review of Systems: All systems reviewed & are unremarkable except as noted in HPI and below Exam Const: General: comfortable Eyes: Pupils: Equal, round and reactive pupils present Neck: Neck: supple Resp: Effort & Inspection: normal respiratory effort Auscultation: clear to auscultation bilaterally and no crackles Cardio: Rate: regular rate Rhythm: regular rhythm Heart sounds: no gallops, no murmurs and no rubs GI: GI Palp: Yes Soft to palpation and No Tenderness to palpation present (GI) Auscultation: normal bowel sounds Extrem: General: no edema Objective Data Vital Signs Vital Signs: Vital Signs - 24 hr 01/09/23 15:43 01/09/23 16:00 01/09/23 17:21 Temperature 96.2 F L Pulse Rate 87 89 Respiratory Rate 22 H Blood Pressure 119/79 Pulse Oximetry 99 98 Oxygen Delivery Room Air 01/09/23 16:00 01/09/23 18:00 01/09/23 19:34 Temperature 97.3 F L Pulse Rate 90 89 89 Respiratory Rate 20 Blood Pressure 130/77 Pulse Oximetry 99 Oxygen Delivery 01/09/23 20:06 01/09/23 23:12 01/09/23 20:00 Temperature 97 F L Pulse Rate 89 89 Respiratory Rate 20 20 Blood Pressure 135/85 Pulse Oximetry 97 99 99 Oxygen Delivery Room Air Room Air 01/09/23 20:00 01/09/23 22:00 01/10/23 00:00 Temperature Pulse Rate 89 89 87 Respiratory Rate Blood Pressure Pulse Oximetry Oxygen Delivery 01/10/23 00:00 01/10/23 02:00 01/10/23 04:00 Temperature 97.8 F Pulse Rate 87 93 83 Respiratory Rate 20 20 Blood Pressure 122/69 Pulse Oximetry 99 100 Oxygen Delivery Room Air 01/10/23 04:00 01/10/23 04:00 01/10/23 06:12 Temperature Pulse Rate 83 98 90 Respiratory Rate 20 Blood Pressure Pulse Oximetry 100 Oxygen Delivery Room Air 01/10/23 08:14 01/10/23 09:38 01/10/23 09:40 Temperature 96.1 F L Pulse Rate 94 Respiratory Rate 22 H Blood Pressure 107/52 L 88/56 L 112/63 Pulse Oximetry 100 Oxygen Delivery 01/10/23 10:08 01/10/23 08:00 01/10/23 10:00 Temperature Pulse Rate 88 94 87 Respiratory Rate Blood Pressure Pulse Oximetry Oxygen Delivery 01/10/23 08:00 01/10/23 12:00 01/10/23 13:16 Temperature 96.3 F L Pulse Rate 81 Respiratory Rate 20 Blood Pressure 97/55 L Pulse Oximetry 95 100 Oxygen Delivery Room Air Room Air 01/10/23 12:00 01/10/23 14:00 Temperature Pulse Rate 94 97 Respiratory Rate Blood Pressure Pulse Oximetry Oxygen Delivery Intake/Output Intake/Output: Intake & Output 01/07/23 01/08/23 01/09/23 01/10/23 23:59 23:59 23:59 23:59 Intake Total 3460 990 240 Output Total 1999 3950 900 Balance 9621 -2539 -013 Meds/Results Medications: Active Medications Generic Name Dose Route Start Last Admin Trade Name Freq PRN Reason St
[2023-01-10 17:22] LABS: Glucose Point of Care 166 mg/dl (65-105)
--- NOTE | 2023-01-10 17:27 | PC.NURSE ---
This patient, Erwin Neville, was transferred to [facility] on 01/10/23 at 1727. Personal belongings sent with patient. Report given to Deisy. Appropriate documentation sent with patient.
[2023-01-10 21:27] LABS: Glucose Point of Care 179 mg/dl (65-105)
[2023-01-11] VITALS: BP 115/67; PULSE 83; RESP 16; TEMP 35.9; O2SAT 96
[2023-01-11 04:00] VITALS: BP 104/54; PULSE 66; RESP 18; TEMP 36; O2SAT 98
[2023-01-11] MEDS: HEPARIN SODIUM 5,000 UNITS/ML VIAL 5000 UNITS SUB-Q ×2 (05:40→13:45)
[2023-01-11 07:10] LABS: Hematocrit 42.8 % (42.0-52.0); Hemoglobin 12.5 g/dL (14.0-18.0); Mean Corpuscular HGB Conc 29.2 g/dl (32-36); Mean Corpuscular Hemoglobin 32.6 pg (26-34); Mean Corpuscular Volume 111.5 fl (80-100); Mean Platelet Volume 10.7 fl (7.4-10.4); Platelet Count Result 210 k/mm3 (150-375); Red Blood Count 3.84 M/mm3 (4.6-6.20); Red Cell Distribution Width 13.6 % (11.5-14.5); White Blood Count 7.7 K/mm3 (4.5-10.0)
--- NOTE | 2023-01-11 07:32 | PM.PNCARD ---
Progress Note: A&P Assessment and Plan (1) Elevated troponin: Code(s): R79.89 - Other specified abnormal findings of blood chemistry Status: Acute Assessment and Plan: Elevated and peaked at 1.47. EKG shows paced ventricle. No symptoms to suggest ACS. Differential includes fall, acute on CKD, CAD. Heparin drip started in ED. Continue aspirin, Metoprolol, Simvastatin. 01/08/23 Echo: EF 40-45%, mild LVE, mod LVH, diastolic dysfunction with E/e' 16, mod biatrial enlargement, mild-mod MR, mod TR, RVSP 43 mmHg. Consulted [facility] for consideration of LHC and appreciate Dr. Artis's evaluation. No LHC for now and obtain Lexiscan myoview stress. 01/09/23 Lexiscan myoview shows no reversible ischemia; only fixed defects in apical to mid inferior and fixed defect in mid to basal inferolateral segments from prior infarct or scar. Unknown his baseline kidney function but 3 years ago Cr was much better at 1.0. Since troponin peaked, stopped heparin drip. Discuss with patient, no need for LHC. May d/c home from cardiology standpoint and f/u with his regular hplc chemist, Dr. Howard at [facility]. (2) Acute on chronic renal insufficiency: Code(s): N28.9 - Disorder of kidney and ureter, unspecified; N18.9 - Chronic kidney disease, unspecified Status: Acute Assessment and Plan: Cr 1.7/GFR 38. Monitor. (3) Diabetes mellitus without complication: Code(s): E11.9 - Type 2 diabetes mellitus without complications Status: Acute Assessment and Plan: Managed by hospitalist. (4) Hypertension: Code(s): I10 - Essential (primary) hypertension Status: Acute Assessment and Plan: Stable. Decreased Carvedilol 6.25 mg BID for low normal BP. Otherwise, continue home cardiac medication. (5) Dyslipidemia: Code(s): E78.5 - Hyperlipidemia, unspecified Status: Acute Assessment and Plan: On Simvastatin. (6) Pacemaker: Code(s): Z95.0 - Presence of cardiac pacemaker Status: Acute Assessment and Plan: [employer] pacemaker interrogated about a month ago at [facility] and is working fine per patient. His regular hplc chemist is Dr. Howard at [facility]. (7) Fall: Code(s): W19.XXXA - Unspecified fall, initial encounter Status: Acute Assessment and Plan: Due to gait instability. (8) Systolic dysfunction: Code(s): I51.9 - Heart disease, unspecified Status: Acute Assessment and Plan: Euvolemic. 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 He is on home medication Carvedilol, Bumetanide. Subjective Date/time seen: 01/11/23 07:32 Interval history: No chest pains or SOB. Exam Const: General: cooperative, healthy appearing and comfortable Orientation/consciousness: oriented to person, oriented to place and oriented to time Resp: Auscultation: clear to auscultation bilaterally, no crackles, no rales, no rhonchi and no wheezes Cardio: Rate: regular rate Rhythm: regular rhythm Heart sounds: no murmurs Peripheral pulses: dorsalis pedis present Neuro: General: oriented to person, oriented to place and oriented to time Extrem: Right lower extremity: no edema Left lower extremity: no edema Objective Data Vital Signs Vital Signs: Vital Signs - 24 hr 01/10/23 08:14 01/10/23 09:38 01/10/23 09:40 Temperature 96.1 F L Pulse Rate 94 Respiratory Rate 22 H Blood Pressure 107/52 L 88/56 L 112/63 Pulse Oximetry 100 Oxygen Delivery 01/10/23 10:08 01/10/23 08:00 01/10/23 10:00 Temperature Pulse Rate 88 94 87 Respiratory Rate Blood Pressure Pulse Oximetry Oxygen Delivery 01/10/23 08:00 01/10/23 12:00 01/10/23 13:16 Temperature 96.3 F L Pulse Rate 81 Respiratory Rate 20 Blood Pressure 97/55 L Pulse Oximetry 95 100 Oxygen Delivery Room Air Room Air 01/10/23 12:00 01/10/23 14:00 01/10/23 17:04
[2023-01-11] MEDS: FLUTICASONE/SALMETEROL 230-21 MCG INHALER 1 PUFF 2 PUFF INHALATION (07:50)
[2023-01-11 07:53] LABS: Anion Gap 15 mmol/L (8-16); Blood Urea Nitrogen 30 mg/dL (9-20); Calcium 8.6 mg/dL (8.4-10.2); Carbon Dioxide 18 mmol/L (22-30); Chloride 107 mmol/L (98-107); Estimated CRCL calculation 44 ml/min; Estimated Glomerular Filt Rate 48; Glucose 134 mg/dL (65-110); Magnesium 2.8 mg/dL (1.6-2.3); Potassium 4.2 mmol/L (3.4-5.0); Sodium 140 mmol/L (137-145)
[2023-01-11 08:00] VITALS: BP 122/58; PULSE 85; RESP 16; TEMP 35.8; O2SAT 100
[2023-01-11 08:01] LABS: Glucose Point of Care 129 mg/dl (65-105)
[2023-01-11] MEDS: CYANOCOBALAMIN 250 MCG TABLET PO (09:16)
[2023-01-11] MEDS: BUMETANIDE 1 MG TABLET 2 MG PO (09:16)
[2023-01-11] MEDS: SACUBITRIL/VALSARTAN 12-13 MG TABLET 1 TAB PO (09:16)
[2023-01-11] MEDS: SIMVASTATIN 20 MG TABLET 40 MG PO (09:16)
[2023-01-11] MEDS: ASCORBIC ACID 500 MG TABLET 1000 MG PO (09:16)
[2023-01-11] MEDS: ASPIRIN 81 MG ENTERIC TABLET PO (09:16)
[2023-01-11] MEDS: EMPAGLIFLOZIN 10 MG TABLET PO (09:16)
[2023-01-11 09:17] VITALS: PULSE 92
[2023-01-11] MEDS: carvediloL 6.25 MG TABLET PO (09:17)
--- NOTE | 2023-01-11 11:46 | PM.PNNEP ---
Progress Note: A&P Assessment and Plan (1) Renal insufficiency: Code(s): N28.9 - Disorder of kidney and ureter, unspecified Status: Chronic Assessment and Plan: renal function normal ~ 3 years ago presented with creatinine of 1.7mg/dl and down to 1.5mg/dl by AM labs suspect he probably has some underlying CKD at baseline (due to HTN, DM, vascular disease, and age-related change) admission CT scan with bilateral renal cysts are present. 3 mm left lower pole nonobstructing renal stone present. would proceed with further testing but the patient is no really interested in doing so at this time follow trend of repeat labs and UOP (2) Elevated troponin: Code(s): R79.89 - Other specified abnormal findings of blood chemistry Status: Acute Assessment and Plan: noted since admission Cardiology recommendations noted positive lexiscan consideration of [facility] but #1 is a concern contiue medical management follows with Cardiology at [facility] (3) Hypertension: Code(s): I10 - Essential (primary) hypertension Status: Chronic Assessment and Plan: reasonable control follow trend of hemodynamics (4) Diabetes mellitus without complication: Code(s): E11.9 - Type 2 diabetes mellitus without complications Status: Chronic Assessment and Plan: follow acc-cheks glycemic control per hospitalists Will continue to follow. Subjective Date/time seen: 01/11/23 11:46 Interval history: Follow-up for renal insufficiency (suspect/likely chronic kidney disease). Renal function is stable if not a bit better at this time; no other acute issues/events noted at the time of my visit; no apparent distress voiced. Exam Narrative: General: elderly but WD/WN male in NAD Heart: normal S1 and S2; no rub Lungs: clear to auscultation Abdomen: soft, nontender, nondistended, positive bowel sounds Extremities: no cyanosis or clubbing; no edema Skin: warm and dry Objective Data Vital Signs Vital Signs: Vital Signs Temp Pulse Resp BP Pulse Ox O2 Del Method 01/11/23 09:15 Room Air 01/11/23 09:17 92 01/11/23 08:00 96.5 F L 85 16 122/58 L 100 01/11/23 04:00 96.8 F L 66 18 104/54 L 98 01/11/23 00:00 96.7 F L 83 16 115/67 96 01/10/23 20:00 97.2 F L 87 16 122/82 96 01/10/23 20:00 87 Room Air 01/10/23 21:19 87 01/10/23 20:02 61 97 Room Air Intake/Output Intake/Output: Intake & Output 01/08/23 01/09/23 01/10/23 01/11/23 23:59 23:59 23:59 23:59 Intake Total 3460 516 419 4139 Output Total 1999 3950 2100 700 Balance 5520 -8767 -1148 380 Meds/Results Medications: Active Medications Generic Name Dose Route Start Last Admin Trade Name Freq PRN Reason Stop Dose Admin Acetaminophen 650 mg 01/08/23 13:13 Acetaminophen 325 Mg Tablet PO Q4H PRN Mild Pain (1-3) or Fever Ascorbic Acid 1,000 mg 01/08/23 12:45 01/11/23 09:16 Ascorbic Acid 500 Mg Tablet PO 1,000 mg DAILY MICHELLE Administration Aspirin 81 mg 01/08/23 12:45 01/11/23 09:16 Aspirin 81 Mg Enteric Tablet PO 81 mg DAILY MICHELLE Administration Bumetanide 2 mg 01/08/23 12:40 01/11/23 09:16 Bumetanide 1 Mg Tablet PO 2 mg Q12HR MICHELLE Administration Carvedilol 6.25 mg 01/10/23 09:51 01/11/23 09:17 Carvedilol 6.25 Mg Tablet PO 6.25 mg Q12HR MICHELLE Administration Cyanocobalamin 250 mcg 01/08/23 12:45 01/11/23 09:16 Cyanocobalamin 250 Mcg Tablet PO 250 mcg DAILY MICHELLE Administration Dextrose 12.5 gm 01/09/23 18:34 Dextrose 50% 25 Gm/50 Ml Syringe IV PUSH PRN PRN Hypoglycemia Protocol Empagliflozin 10 mg 01/10/23 09:00 01/11/23 09:16 Empagliflozin 10 Mg Tablet PO 10 mg DAILY MICHELLE Administration Glucagon 1 mg 01/09/23 18:34 Glucagon For Inj 1 Mg Vial IM PRN PRN Hypoglycemia Protocol Glucose 15 gm 01/09/23 18
--- NOTE | 2023-01-11 11:46 | P.PNNP_ITS ---
Progress Note: A&P Assessment and Plan (1) Renal insufficiency: Code(s): N28.9 - Disorder of kidney and ureter, unspecified Status: Chronic Assessment and Plan: * renal function normal ~ 3 years ago * presented with creatinine of 1.7mg/dl and down to 1.5mg/dl by AM labs * suspect he probably has some underlying CKD at baseline (due to HTN, DM, vascular disease, and age-related change) * admission CT scan with bilateral renal cysts are present. 3 mm left lower pole nonobstructing renal stone present. * would proceed with further testing but the patient is no really interested in doing so at this time * follow trend of repeat labs and UOP (2) Elevated troponin: Code(s): R79.89 - Other specified abnormal findings of blood chemistry Status: Acute Assessment and Plan: * noted since admission * Cardiology recommendations noted * positive lexiscan * consideration of [facility] but #1 is a concern * contiue medical management * follows with Cardiology at [facility] (3) Hypertension: Code(s): I10 - Essential (primary) hypertension Status: Chronic Assessment and Plan: * reasonable control * follow trend of hemodynamics (4) Diabetes mellitus without complication: Code(s): E11.9 - Type 2 diabetes mellitus without complications Status: Chronic Assessment and Plan: * follow acc-cheks * glycemic control per hospitalists Will continue to follow. Subjective Date/time seen: 01/11/23 11:46 Interval history: Follow-up for renal insufficiency (suspect/likely chronic kidney disease). Renal function is stable if not a bit better at this time; no other acute issues/events noted at the time of my visit; no apparent distress voiced. Exam Narrative: General: elderly but WD/WN male in NAD Heart: normal S1 and S2; no rub Lungs: clear to auscultation Abdomen: soft, nontender, nondistended, positive bowel sounds Extremities: no cyanosis or clubbing; no edema Skin: warm and dry Objective Data Vital Signs Vital Signs: Vital Signs Temp Pulse Resp BP Pulse Ox O2 Del Method 01/11/23 09:15 Room Air 01/11/23 09:17 92 01/11/23 08:00 96.5 F L 85 16 122/58 L 100 01/11/23 04:00 96.8 F L 66 18 104/54 L 98 01/11/23 00:00 96.7 F L 83 16 115/67 96 01/10/23 20:00 97.2 F L 87 16 122/82 96 01/10/23 20:00 87 Room Air 01/10/23 21:19 87 01/10/23 20:02 61 97 Room Air Intake/Output Intake/Output: Intake & Output 01/08/23 01/09/23 01/10/23 01/11/23 23:59 23:59 23:59 23:59 Intake Total 3460 377 680 6108 Output Total 2000 3950 2100 700 Balance 9455 -8734 -1543 380 Meds/Results Medications: Active Medications Generic Name Dose Route Start Last Admin Trade Name Freq PRN Reason Stop Dose Admin Acetaminophen 650 mg 01/08/23 13:13 Acetaminophen 325 Mg Tablet PO Q4H PRN Mild Pain (1-3) or Fever Ascorbic Acid 1,000 mg 01/08/23 12:45 01/11/23 09:16 Ascorbic Acid 500 Mg Tablet PO 1,000 mg DAILY MICHELLE Administration Aspirin 81 mg 01/08/23 12:45 01/11/23 09:16 Aspirin 81 Mg
[2023-01-11 12:00] LABS: Glucose Point of Care 160 mg/dl (65-105)
[2023-01-11 14:00] VITALS: BP 109/65; PULSE 87; RESP 18; TEMP 36.4; O2SAT 100
--- NOTE | 2023-01-11 15:43 | PM.DS ---
DS: Admitting Diagnosis Discharge Date 01/11/23 Admitting Diagnosis falls at home DS: Discharge Diagnosis Discharge Diagnosis (1) Systolic dysfunction: Code(s): I51.9 - Heart disease, unspecified Status: Acute (2) RASHMI (acute kidney injury): Code(s): N17.9 - Acute kidney failure, unspecified Status: Acute (3) Fall: Code(s): W19.XXXA - Unspecified fall, initial encounter Status: Acute (4) Pacemaker: Code(s): Z95.0 - Presence of cardiac pacemaker Status: Acute (5) Dyslipidemia: Code(s): E78.5 - Hyperlipidemia, unspecified Status: Acute (6) Hypertension: Code(s): I10 - Essential (primary) hypertension Status: Acute (7) Diabetes mellitus without complication: Code(s): E11.9 - Type 2 diabetes mellitus without complications Status: Acute (8) Elevated troponin: Code(s): R79.89 - Other specified abnormal findings of blood chemistry Status: Acute DS: Summary Hospital Course Hospital Course: 87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 He was evaluated by PT and is being discharged in stable condition ton SNF for acute rehab. During his stay he also had an elevated troponin, mild, which peaked. Cardiology was consulted and pt under went lexiscan demonstrating a fixed defect. no further evaluation recommended. echo demonstrated EF 40-45%. Coreg was decreased to 12.5mg for low normal BP Time Spent with Patient Time attestation: Total time spent providing and/or coordinating discharge services: Exam Const: General: cooperative and no acute distress Other: obese Resp: Effort & Inspection: normal respiratory effort Auscultation: clear to auscultation bilaterally Cardio: Rate: regular rate Rhythm: regular rhythm Heart sounds: S1 normal heart sound present and S2 normal heart sound present GI: GI Palp: No abdominal tenderness Auscultation: normal bowel sounds DS: Data Data Completed and Pending Labs on day of discharge: Labs from last 24 hours 01/11/23 01/11/23 01/11/23 15:30 11:35 07:41 WBC RBC Hgb Hct MCV MCH MCHC RDW Plt Count MPV Sodium Potassium Chloride Carbon Dioxide Anion Gap BUN Creatinine Estim Creat Clear Calc Estimated GFR Glucose POC Capillary Glucose 160 H 129 H Calcium Magnesium SARS-CoV-2 RNA (RT-PCR) Pending 01/11/23 01/10/23 01/10/23 06:23 20:50 17:04 WBC 7.7 RBC 3.84 L Hgb 12.5 L Hct 42.8 MCV 111.5 H D MCH 32.6 MCHC 29.2 L RDW 13.6 Plt Count 210 MPV 10.7 H Sodium 140 Potassium 4.2 Chloride 107 Carbon Dioxide 18 L Anion Gap 15 BUN 30 H Creatinine 1.40 H Estim Creat Clear Calc 44 Estimated GFR 48 L Glucose 134 H POC Capillary Glucose 179 H 166 H Calcium 8.6 Magnesium 2.8 H SARS-CoV-2 RNA (RT-PCR) Preliminary micro results at discharge 01/10/23 05:02 Blood Culture - Preliminary Blood 01/10/23 05:02 Blood Culture - Preliminary Blood 01/08/23 17:43 Blood Culture - Preliminary Blood Staphylococcus haemolytics 01/08/23 17:34 Blood Culture - Preliminary Blood Discharge Plan Discharge Attending physician on discharge: Jennifer Bergeron Consulting providers: Bayron Ceron; Guerda Ulloa; Nader So; Deborah Otero Discharging Clinician: Jennifer Bergeron Patient Disposition: Hospital Swing Bed Activity: june shower Diet: heart healthy and diabetic Patient Instructions: Antibiotic Form, Heart Failure (DC) Stand Alone Forms: General Discharge Information Discharge Medications: New carvedilol [Coreg] 6.25 mg Tablet 6.25 mg PO Q12HR Qty: 90 0RF simvastatin 20 mg Tablet 40 mg PO QAM Qty: 90 0RF Continued ascorbic acid (vitamin C) 1,000 mg tablet 1 gm PO DAILY aspiri
[2023-01-11 16:21] LABS: SARS-CoV-2 RNA PCR Negative (Negative)
[2023-01-11 17:35] LABS: Glucose Point of Care 180 mg/dl (65-105)
== END 2023-01-11 17:40 ==
LOC: ANHED 06:27 → ANHIMU 07:03 → ANH3MEDSUR 01-10 17:09
PROVIDERS: Admitting Provider General Practice; Emergency Provider Emergency Medicine; PCP Internal Medicine; Visit Provider Internal Medicine
DX: N17.9 Acute kidney failure, unspecified (principal); I13.10 Hypertensive heart and chronic kidney disease without heart failure, with stage 1 through stage 4 chronic kidney disease, or unspecified chronic kidney disease; E11.22 Type 2 diabetes mellitus with diabetic chronic kidney disease; N18.9 Chronic kidney disease, unspecified; S09.90XA Unspecified injury of head, initial encounter; W01.0XXA Fall on same level from slipping, tripping and stumbling without subsequent striking against object, initial encounter; Z95.0 Presence of cardiac pacemaker; E78.5 Hyperlipidemia, unspecified; R77.8 Other specified abnormalities of plasma proteins; Z20.822 Contact with and (suspected) exposure to COVID-19; D72.829 Elevated white blood cell count, unspecified; R06.09 Other forms of dyspnea; I08.3 Combined rheumatic disorders of mitral, aortic and tricuspid valves; I27.20 Pulmonary hypertension, unspecified; R29.6 Repeated falls; R94.31 Abnormal electrocardiogram [ECG] [EKG]; K86.2 Cyst of pancreas; R32 Unspecified urinary incontinence; R33.9 Retention of urine, unspecified; M47.812 Spondylosis without myelopathy or radiculopathy, cervical region; M48.02 Spinal stenosis, cervical region; K76.89 Other specified diseases of liver; N28.1 Cyst of kidney, acquired; N40.0 Benign prostatic hyperplasia without lower urinary tract symptoms; M19.91 Primary osteoarthritis, unspecified site; R90.82 White matter disease, unspecified; Z79.82 Long term (current) use of aspirin; Z79.84 Long term (current) use of oral hypoglycemic drugs; Z79.899 Other long term (current) drug therapy; Z83.3 Family history of diabetes mellitus; Z82.49 Family history of ischemic heart disease and other diseases of the circulatory system; Z82.61 Family history of arthritis
CPT/HCPCS: 36415; 70450; 71250; 72125; 74176; 78452; 80048; 80053; 81001; 82948; 83735; 83880; 84145; 84484; 85025; 85027; 85610; 85730; 87040; 87147; 87181; 87186; 87635; 93005; 93017; 93306; 94640; 96365; 96366; 97116; 97161; 97165; 97530; 97535; 99285; A9270; A9502; G0378; J1644; J1815; J1940; J2785; J7040

== ENCOUNTER 2023-01-12 22:02 | Inpatient (IN) | payer MEDICARE, SELFPAY ==
[2023-01-12] VITALS (10 sets, daily range): BP systolic 76–96; BP diastolic 38–63; PULSE 86–186; RESP 12–41; TEMP 36.5; O2SAT 90–99
--- NOTE | ~2023-01-12 | XR_ITS ---
EXAMINATION: XR chest 1V portable DATE: 01/12/2023 22:47 INDICATION: Shortness of breath. TECHNIQUE: A single frontal view of the chest was obtained. COMPARISON: Chest 2 views 08/04/2019, chest CT 01/08/2023 FINDINGS: There is no pneumonia, pleural effusion, or pneumothorax. Cardiomegaly is noted. There is a left chest pacer with leads in right ventricle and coronary sinus. There is a closure device at left atrial appendage. IMPRESSION: 1. Cardiomegaly. Reviewed, dictated and finalized at location E. D CLINICAL ENGINEER IMPRESSION: 1. Cardiomegaly.
--- NOTE | 2023-01-12 22:06 | ECG_ITS ---
Measurements Intervals [place]er Rate: 93 P: ID: 0 QRS: 184 QRSD: 166 T: 43 QT: 457 QTc: 570 Interpretive Statements ELECTRONIC VENTRICULAR PACEMAKER WITH INHIBITION VENTRICULAR COUPLET AND VENTRICULAR TRIGEMINY BASELINE WANDER- V5 NO FURTHER INTERPRETATION IS POSSIBLE ABNORMAL ECG COMPARED TO ECG 01/08/2023 04:33:39 NO SIGNIFICANT CHANGES Electronically Signed On 01-13-2023 6:53:08 [employer]STATE LOAN PROCESSOR by Bayron Ceron D.O.
--- NOTE | 2023-01-12 22:23 | ED.ARRPALP ---
HPI - Arrhythmia/Palpitations General Chief Complaint: Arrhythmia/Palpitations Stated Complaint: syncope Time Seen by Provider: 01/12/23 22:02 Source: patient and EMS Limitations: no limitations History of Present Illness HPI narrative: Patient is an 87-year-old male presents to the emergency department for a possible syncopal episode that occurred at the [facility] the patient is a resident of just prior to arrival here, upon EMS arrival the attending EKG that appeared to have V-tach and this was transmitted and patient spontaneously converted to a paced rhythm became much more alert and responsive. Patient denies any current complaints, denies any new or changed medications. Patient admits to history of pacemaker being placed. Patient denies a history of heart failure medication list this consistent with a history of heart failure. Patient denies chest pain, numbness, weakness, headache, vision changes, difficulty swallowing, abdominal pain, vomiting, diarrhea, melena, hematochezia, use of blood thinners, history of blood clots. Patient does admit to some shortness of breath. Patient denies unilateral lower extremity swelling. Related Data Home Medications Medication Instructions Recorded Confirmed ascorbic acid (vitamin C) 1,000 mg 1 gm PO DAILY 07/27/19 01/08/23 tablet aspirin 81 mg tablet,delayed 81 mg PO DAILY 07/27/19 01/08/23 release cyanocobalamin (vitamin B-12) 250 250 mcg PO DAILY 07/27/19 01/08/23 mcg lozenges metformin 500 mg tablet 500 mg PO BID 07/27/19 01/08/23 omega-3 fatty acids 1,000 mg 1,000 mg PO HS 07/27/19 01/08/23 capsule ropinirole 0.5 mg tablet 0.5 mg PO HS PRN Restless Leg(S) 07/27/19 01/08/23 bumetanide 2 mg tablet 2 mg PO Q12H 01/08/23 01/08/23 empagliflozin 25 mg tablet 25 mg PO DAILY 01/08/23 01/08/23 (Jardiance) fluticasone 232 mcg-salmeterol 14 2 inh inhalation DAILY 01/08/23 01/08/23 mcg/actuation breath activated powdr sacubitril 24 mg-valsartan 26 mg 0.5 tablet PO Q12H 01/08/23 01/08/23 tablet (Entresto) Allergies Allergy/AdvReac Type Severity Reaction Status Date / Time duloxetine Allergy Intermediate Hallucinati Verified 08/19/19 10:57 ng ARB-Angiotensin Receptor Allergy Mild Swelling Verified 08/19/19 10:57 Antagonist lisinopril Allergy Unknown unknown Verified 08/19/19 10:57 Review of Systems Review of Systems: A 10 system review of systems was completed on the patient and is negative except for what is stated in the HPI. Nursing and ancillary documentation was reviewed. COUNT INCLUDES THE [facility] Past Medical History Medical History (Updated 01/13/23 @ 00:11 by Renan Steve DO) Acute low back pain Diabetes mellitus without complication Dyspnea on exertion Osteoarthritis Primary osteoarthritis Family History Family History Mother Hypertension CHF (congestive heart failure) Father Diabetes mellitus Heart disease Malignant neoplasm of prostate Unknown Acute arthritis Social History Social History Smoking status: Never smoker Lack of Transportation: No Lack of Food: Never True Current Housing: I Have Housing Concerned About Future Housing: No Difficulty Paying Gas/Electric Bills: No Difficulty Paying for Meds: No Currently Unemployed: No Education: High School Diploma/GED Difficulty w/ Childcare or Family Care: No Spiritual care concerns: No Comments At time of signature, I have reviewed and agree with nursing past medical, surgical, social and family history unless otherwise noted. Please see the nursing chart for further information. There is no relevant family history pertinent to the presenting complaint. Exam Narrative: CONST: No acute distress. Well nourished. HENMT: Head is normocephalic and atraumatic. Moist mucous membranes. No posterior oropharynx erythema. EYES: No conj
[2023-01-12] MEDS: AMIODARONE 150 MG/D5W 100 ML 150 MG/100 ML BAG 600 MG IV CONT (22:35)
[2023-01-12] MEDS: SODIUM CHLORIDE 0.9% IV 500 ML 999 ML IV CONT (22:35)
[2023-01-12 22:43] LABS: Basophils Percent Auto 0.4 % (0.2-1.2); Eosinophils Absolute Auto 0.1 K/mm3 (0-0.3); Eosinophils Percent Auto 0.6 % (0-4.4); Hematocrit 41.8 % (42.0-52.0); Hemoglobin 12.8 g/dL (14.0-18.0); Immature Granulocyte Absolute 0.05 K/mm3 (0.00-0.031); Immature Granulocyte Percent A 0.5 % (0-0.5); Lymphocytes Absolute Auto 1.54 K/mm3 (0.9-3.2); Lymphocytes Percent Auto 16.5 % (18.3-44.2); Mean Corpuscular HGB Conc 30.6 g/dl (32-36); Mean Corpuscular Hemoglobin 31.4 pg (26-34); Mean Corpuscular Volume 102.5 fl (80-100); Mean Platelet Volume 9.8 fl (7.4-10.4); Monocytes Absolute Auto 0.8 K/mm3 (0.1-0.6); Monocytes Percent Auto 8.9 % (2.6-8.5); Neutrophils Absolute Auto 6.8 K/mm3 (1.3-6.7); Neutrophils Percent Auto 73.1 % (45.5-73.1); Platelet Count Result 313 k/mm3 (150-375); Red Blood Count 4.08 M/mm3 (4.6-6.20); Red Cell Distribution Width 13.6 % (11.5-14.5); White Blood Count 9.4 K/mm3 (4.5-10.0)
[2023-01-12 22:47] LABS: Alanine Aminotransferase 127 U/L (6-50); Albumin Level 3.9 g/dL (3.5-5.1); Alkaline Phosphatase 77 U/L (38-126); Anion Gap 15 mmol/L (8-16); Aspartate Amino Transferase 106 U/L (17-59); Bilirubin,Total 0.9 mg/dL (0.2-1.3); Blood Urea Nitrogen 33 mg/dL (9-20); Calcium 8.9 mg/dL (8.4-10.2); Carbon Dioxide 21 mmol/L (22-30); Chloride 101 mmol/L (98-107); Estimated CRCL calculation 32 ml/min; Estimated Glomerular Filt Rate 32; Glucose 317 mg/dL (65-110); Lipase 457 U/L (23-300); Magnesium 2.6 mg/dL (1.6-2.3); Potassium 3.8 mmol/L (3.4-5.0); Sodium 137 mmol/L (137-145)
--- NOTE | 2023-01-12 22:51 | PC.NURSE ---
Addendum entered by Karime Johnson RN 01/12/23 23:57: This RN DID NOT administer furosemide. Original Note: This RN did administer furosemide due to pt blood pressure being 79/62. EDP Dr. Steve made aware. Medication withheld.
[2023-01-12 22:53] LABS: Partial Thromboplastin Time 31.2 SECONDS (22.3-36.8)
[2023-01-12 22:59] LABS: INR 1.1; Prothrombin Time 14.8 Seconds (11.1-14.7)
[2023-01-12 23:07] LABS: Troponin I 0.295 ng/mL (0.000-0.034)
[2023-01-12 23:18] LABS: Influenza A QL RT-PCR Negative (Negative); Influenza B QL RT-PCR Negative (Negative); SARS-CoV-2 RNA PCR Negative (Negative)
--- NOTE | 2023-01-12 23:19 | ECG_ITS ---
Measurements Intervals [place] Rate: 85 P: DE: 0 QRS: 119 QRSD: 164 T: -84 QT: 448 QTc: 534 Interpretive Statements ELECTRONIC VENTRICULAR PACEMAKER FREQUENT FUSION COMPLEXES BASELINE ARTIFACT- I, III, AVL, AVF, V5-V6 NO FURTHER INTERPRETATION IS POSSIBLE ABNORMAL ECG COMPARED TO ECG 01/12/2023 22:09:37 NO SIGNIFICANT CHANGES Electronically Signed On 01-13-2023 6:57:34 ASIAN STUDIES PROFESSOR by Bayron Ceron D.O.
--- NOTE | 2023-01-12 23:24 | PC.NURSE ---
Pt was shocked at 200J per EDP Dr. Alyssa Steve. Dr. Alyssa Steve prior to shock spoke with family to provide risks and benefits of pt being shocked into a stable rhythm. Pt rhythm at this time is ventricular tachycardia. Pt family member verbally confirmed pt to be shocked.
[2023-01-12 23:57] LABS: D Dimer 0.95 ug/mL (<0.48)
--- NOTE | 2023-01-12 23:59 | PM.IMHP ---
H&P: HPI History of Present Illness Date/Time: 01/12/23 23:59 Chief Complaint: syncope Narrative: This is an 87-year-old male with past medical history significant for coronary artery disease, chronic kidney disease, type 2 diabetes mellitus, restless leg syndrome, dyslipidemia. Patient just recently discharged after thorough evaluation for non ST CA with a stressed Lexiscan test. Patient returns today from assisted after having syncopal episode he was found to have a an episode of V-tach while in the emergency room patient converted to sinus rhythm spontaneously however had another run of V-tach requiring electrical cardioversion started on amiodarone drip. At the time of my visit patient stated he was feeling fine denied any chest pain, shortness of breath, dizziness, lightheadedness, no nausea, no vomiting, no abdominal pain. Patient is been admitted for further evaluation management and treatment. Review of Systems Review of Systems: Syncopal episode Constitutional: Constitutional: Denies chills, Denies fatigue, Denies fever(s), Denies malaise, Denies night sweats and Denies weakness Eyes: Eyes: Denies change in vision ENT: Denies dysphagia, Denies vertigo, Reports dizziness and Denies odynophagia Cardiovascular: Cardiovascular: Denies chest pain, Reports syncope, Reports lightheadedness, Denies radiating jaw, neck or arm pain and Reports palpitations Respiratory: Respiratory: Denies cough and Denies dyspnea Gastrointestinal: Gastrointestinal: Denies abdominal pain, Denies dyspepsia, Denies heartburn, Denies diarrhea, Denies nausea and Denies vomiting Genitourinary: Genitourinary: Denies dysuria Musculoskeletal: Musculoskeletal: Denies arthralgias Integumentary/Breasts: Skin/Breast: Denies rash Neurologic: Denies focal weakness and Denies Sensory deficit (Neuro) Psychiatric: Psychiatric: Reports no additional psychiatric complaints and Reports as per HPI Endocrine: Endocrine: Denies cold intolerance, Denies fatigue, Denies flushing, Denies heat intolerance, Denies polyphagia, Denies polydipsia and Denies palpitations Hematologic/Lymphatic: Hematologic/Lymphatic: Reports no additional hematologic/lymphatic complaints and Reports as per HPI Allergic/Immunologic: Allergic/Immunologic: Reports no additional allergic/immunologic complaints and Reports as per HPI [facility] Past Medical History Medical History (Updated 01/13/23 @ 00:11 by Renan Steve DO) Acute low back pain Diabetes mellitus without complication Dyspnea on exertion Osteoarthritis Primary osteoarthritis Family History Family History Mother Hypertension CHF (congestive heart failure) Father Diabetes mellitus Heart disease Malignant neoplasm of prostate Unknown Acute arthritis Social History Social History Smoking status: Never smoker Lack of Transportation: No Lack of Food: Never True Current Housing: I Have Housing Concerned About Future Housing: No Difficulty Paying Gas/Electric Bills: No Difficulty Paying for Meds: No Currently Unemployed: No Education: High School Diploma/GED Difficulty w/ Childcare or Family Care: No Spiritual care concerns: No Meds Home Medications and Allergies Home Medications Medication Instructions Recorded Confirmed Type ascorbic acid (vitamin C) 1,000 mg 1 gm PO DAILY 07/27/19 01/08/23 History tablet aspirin 81 mg tablet,delayed 81 mg PO DAILY 07/27/19 01/08/23 History release cyanocobalamin (vitamin B-12) 250 250 mcg PO DAILY 07/27/19 01/08/23 History mcg lozenges metformin 500 mg tablet 500 mg PO BID 07/27/19 01/08/23 History omega-3 fatty acids 1,000 mg 1,000 mg PO HS 07/27/19 01/08/23 History capsule ropinirole 0.5 mg tablet 0.5 mg PO HS PRN Restless Leg(S) 07/27/19 01/08/23 History bumetanide 2 mg tablet 2 mg PO Q12H 01/08/23
[2023-01-13] VITALS (31 sets, daily range): BP systolic 66–115; BP diastolic 40–85; PULSE 79–178; RESP 10–100; O2SAT 87–100; BMI 30.4
[2023-01-13] MEDS: AMIODARONE 360 MG/D5W 200 ML 360 MG/200 ML BAG 33.33 MG IV CONT ×2 (00:06→07:05)
[2023-01-13] MEDS: SODIUM CHLORIDE 0.9% IV 500 ML 999 ML IV CONT (00:07)
[2023-01-13] MEDS: ASPIRIN 325 MG TABLET PO (00:55)
[2023-01-13] MEDS: HEPARIN SODIUM 5,000 UNITS/ML VIAL 4000 UNITS IV PUSH (01:28)
[2023-01-13] MEDS: HEPARIN SOD/D5W 100 UNITS/ML 25,000 UNITS/250 ML BAG 10 UNITS IV CONT (01:28)
--- NOTE | 2023-01-13 02:56 | PC.NURSE ---
pt received 1 shock at 200J per EDP Dr. Alyssa Steve due to pt rhythm being at ventricular tachycardia.
[2023-01-13 02:57] LABS: Basophils Percent Auto 0.3 % (0.2-1.2); Eosinophils Absolute Auto 0.1 K/mm3 (0-0.3); Eosinophils Percent Auto 0.5 % (0-4.4); Hematocrit 37.8 % (42.0-52.0); Hemoglobin 11.9 g/dL (14.0-18.0); Immature Granulocyte Absolute 0.04 K/mm3 (0.00-0.031); Immature Granulocyte Percent A 0.4 % (0-0.5); Lymphocytes Absolute Auto 1.66 K/mm3 (0.9-3.2); Lymphocytes Percent Auto 16.4 % (18.3-44.2); Mean Corpuscular HGB Conc 31.5 g/dl (32-36); Mean Corpuscular Volume 101.6 fl (80-100); Mean Platelet Volume 10.1 fl (7.4-10.4); Monocytes Absolute Auto 0.9 K/mm3 (0.1-0.6); Monocytes Percent Auto 8.4 % (2.6-8.5); Neutrophils Absolute Auto 7.5 K/mm3 (1.3-6.7); Platelet Count Result 258 k/mm3 (150-375); Red Blood Count 3.72 M/mm3 (4.6-6.20); Red Cell Distribution Width 13.9 % (11.5-14.5); White Blood Count 10.1 K/mm3 (4.5-10.0)
[2023-01-13 03:06] LABS: INR 1.3; Prothrombin Time 16.4 Seconds (11.1-14.7)
[2023-01-13] MEDS: LORazepam INJ (*CRX) 2 MG/ML VIAL 1 MG IV PUSH (03:07)
[2023-01-13 03:23] LABS: Partial Thromboplastin Time 160.3 SECONDS (22.3-36.8)
[2023-01-13 03:31] LABS: Troponin I 0.403 ng/mL (0.000-0.034)
--- NOTE | 2023-01-13 03:34 | PC.NURSE ---
This RN consulted hospitalist Dr. Richards due to pt APTT labs being critical and elevated, along with pt Troponin 3hour being elevated. Hospitalist Dr. Richards stated that she would like the heparin drip pt is receiving to be paused. This RN paused heparin drip and continued to infuse the amiodarone per hospitalist request.
[2023-01-13] MEDS: AMIODARONE 360 MG/D5W 200 ML 360 MG/200 ML BAG 16.67 MG IV CONT (05:15)
--- NOTE | 2023-01-13 05:32 | ADMIMU ---
0509 This patient, Erwin Neville, was admitted to IMU status, and placed in Intensive Care Unit-5. Patient/family oriented to hospital policies and general routines including ID bracelet, bed and alarms, visiting hours, pain management, procedures, bathroom and other care routines, personal items, smoking policy, room service/diet, and visiting hours. Valuables list has been completed. Information on how to activate the Rapid Response Team has been discussed. Patient/Family are encouraged to report perceived risks to care and to ask questions if they do not understand what they are told or what they should do.
--- NOTE | 2023-01-13 06:41 | ECG_ITS ---
Measurements Intervals [place] Rate: 189 P: IN: 0 QRS: 150 QRSD: 124 T: -47 QT: 196 QTc: 348 Interpretive Statements WIDE COMPLEX TACHYCARDIA, CONSIDER VENTRICULAR TACHYCARDIA RIGHT BUNDLE BRANCH BLOCK BASELINE ARTIFACT- I, II, AVR, AVF ABNORMAL ECG COMPARED TO ECG 01/12/2023 23:38:15 WIDE COMPLEX TACHYCARDIA NOW PRESENT RIGHT BUNDLE BRANCH BLOCK NOW PRESENT Electronically Signed On 01-13-2023 8:09:39 GUEST SERVICE REPRESENTATIVE by Bayron Ceron D.O.
[2023-01-13 06:46] LABS: Troponin I 0.515 ng/mL (0.000-0.034)
[2023-01-13] MEDS: SODIUM CHLORIDE 0.9% IV 1,000 ML 999 ML (06:50)
[2023-01-13] MEDS: AMIODARONE 150 MG/D5W 100 ML 150 MG/100 ML BAG 600 MG IV CONT ×2 (06:50→07:08)
[2023-01-13 07:00] LABS: Hematocrit 39.5 % (42.0-52.0); Hemoglobin 12.2 g/dL (14.0-18.0); Mean Corpuscular HGB Conc 30.9 g/dl (32-36); Mean Corpuscular Hemoglobin 32.1 pg (26-34); Mean Corpuscular Volume 103.9 fl (80-100); Platelet Count Result 268 k/mm3 (150-375); Red Cell Distribution Width 13.7 % (11.5-14.5)
[2023-01-13] MEDS: MORPHINE SULFATE (*CRX) 4 MG/ML INJ IV PUSH (07:00)
[2023-01-13 07:11] LABS: Alanine Aminotransferase 114 U/L (6-50); Albumin Level 3.9 g/dL (3.5-5.1); Alkaline Phosphatase 69 U/L (38-126); Anion Gap 14 mmol/L (8-16); Aspartate Amino Transferase 68 U/L (17-59); Bilirubin,Total 0.7 mg/dL (0.2-1.3); Blood Urea Nitrogen 36 mg/dL (9-20); Calcium 9.1 mg/dL (8.4-10.2); Carbon Dioxide 20 mmol/L (22-30); Chloride 105 mmol/L (98-107); Estimated CRCL calculation 33 ml/min; Estimated Glomerular Filt Rate 34; Glucose 187 mg/dL (65-110); Magnesium 2.5 mg/dL (1.6-2.3); Phosphorus 4.1 mg/dL (2.5-4.5); Potassium 3.8 mmol/L (3.4-5.0); Sodium 139 mmol/L (137-145)
[2023-01-13 07:26] LABS: Lactic Acid Reflex 3.2 mmol/L (0.7-2.0)
[2023-01-13 07:55] LABS: Partial Thromboplastin Time 32.2 SECONDS (22.3-36.8)
--- NOTE | 2023-01-13 08:11 | PC.NURSE ---
0648: Patient's heart rhythm changed from paced to vtach. concrete gun operator propellant charge loader, Parisa North and day shift charge, Lucina Sheikh to bedside as well as this RN. Vagal maneuvers failed to restore patient's previous rhythm. MD Richards called to bedside. Medications administered per orders. See MAR for details. Patient prepared for synchronized cardioversion. 0659: ANITA Guardado called patient's family. 701: Patient shocked with 200 J. Patient's previous heart rhythm restored.
--- NOTE | 2023-01-13 08:15 | PM.IMPN ---
Progress Note: A&P Assessment and Plan (1) Ventricular tachycardia: Code(s): I47.20 - Ventricular tachycardia, unspecified Status: Acute (2) Elevated troponin: Code(s): R79.89 - Other specified abnormal findings of blood chemistry Status: Acute (3) Fall: Code(s): W19.XXXA - Unspecified fall, initial encounter Status: Acute Plan 87M w/ PMH CAD, probably CKD, NIDDM, RLS, HLD, OA, HFrEF, obesity, PAF s/p watchman device, s/p PPM was recently discharged from [facility] on 01/12 to acute rehab. He returns as he had a syncopal episode and was found to be in vtach requiring 2 cardioversion since then. 1) v tach, PPM, hypotension - cardiology consulted. [facility] pacemaker interrogated approx 1 month ago at [facility]. His usual observer electrical prospecting is Dr. Howard at [facility] - no evidence of ACS on EKG. would be worthwhile trending troponins. recent admission Lexiscan demonstrating fixed defects. However, the patient does not want CPR/intubation/shocks/central line. He is currently on amiodarone 1mg and phenylephrine 80mcg and in NSR now. critical care managing 2) HFrEF, probable - currently euvolemic, on o2 supplementation but no charting of hypoxia this was likely placed for comfort. The pt is unaware of HF diagnosis but was on Jardiance and diuretics with Dr. Howard. last admission he responded well to an extra dose of lasix. compensated, monitor 3) NIDDM - accuchecks and ISS 4) CKD - impaired GFR recent admission, unknown baseline. ctm. FEN: IVF, NPO GI prophylaxis: DVT prophylaxis: heparin gtt Lines: pIV Code Status: DNR Dispo: guarded More than 35 minutes spent on chart review, patient interaction and assessment and plan. Subjective Date/time seen: 01/13/23 08:15 Interval history: Pt seen at bedside with board saw runner, son, daughter, and . The patient currently has no complaints, although he reports he does not want aggressive measures such as cardioversion/shock, intubation or cpr, or even a central line. The family supports this decision. He denies chest pain, sob, cough, fever. Review of Systems Review of Systems: All systems reviewed & are unremarkable except as noted in HPI and below Exam Const: General: comfortable and no acute distress Other: A&Ox3, obese Eyes: Pupils: Equal, round and reactive pupils present Resp: Effort & Inspection: normal respiratory effort Auscultation: clear to auscultation bilaterally, no crackles, no rales and no rhonchi Cardio: Rate: regular rate Rhythm: regular rhythm Heart sounds: no gallops, no murmurs and no rubs GI: GI Palp: Yes Soft to palpation and No Tenderness to palpation present (GI) Auscultation: normal bowel sounds Extrem: General: no edema Objective Data Vital Signs Vital Signs: Vital Signs - 24 hr 01/12/23 22:00 01/12/23 22:08 01/12/23 22:19 Temperature 97.7 F Pulse Rate 92 100 Respiratory Rate 41 H Blood Pressure 96/63 L Pulse Oximetry 97 Oxygen Delivery Room Air 01/12/23 22:35 01/13/23 00:06 01/12/23 23:07 Temperature Pulse Rate 91 90 96 Respiratory Rate 17 Blood Pressure 84/63 L 89/66 L Pulse Oximetry 97 Oxygen Delivery 01/12/23 23:13 01/12/23 23:15 01/12/23 23:16 Temperature Pulse Rate 184 H 186 H 183 H Respiratory Rate 12 20 22 H Blood Pressure 83/43 L 76/38 L Pulse Oximetry 90 99 99 Oxygen Delivery 01/12/23 23:30 01/12/23 23:45 01/13/23 00:00 Temperature Pulse Rate 87 86 86 Respiratory Rate 22 H 20 15 Blood Pressure Pulse Oximetry 96 98 Oxygen Delivery 01/13/23 00:01 01/13/23 00:17 01/13/23 00:33 Temperature Pulse Rate 87 87 91 Respiratory Rate 19 16 23 H Blood Pressure 89/66 L Pulse Oximetry 87 L Oxygen Delivery 01/13/23 00:46 01/13/23 00:47 01/13/23 01:08 Temperature Pulse Rate 88 85 89 Respiratory Rate 17 17 17 Blood Pressure 82/55 L Pulse Oximetry Oxygen Delivery 01/13/23 01:24 01/13/23 0
--- NOTE | 2023-01-13 08:37 | WPDCNINT ---
Assessment and Plan Assessment and plan (1) Ventricular tachycardia: Code(s): I47.20 - Ventricular tachycardia, unspecified Status: Acute (2) Elevated troponin: Code(s): R79.89 - Other specified abnormal findings of blood chemistry Status: Acute (3) Systolic dysfunction: Code(s): I51.9 - Heart disease, unspecified Status: Acute (4) Dyslipidemia: Code(s): E78.5 - Hyperlipidemia, unspecified Status: Acute (5) Hypertension: Code(s): I10 - Essential (primary) hypertension Status: Acute (6) Diabetes mellitus without complication: Code(s): E11.9 - Type 2 diabetes mellitus without complications Status: Acute (7) Acute non-ST elevation myocardial infarction (NSTEMI): Code(s): I21.4 - Non-ST elevation (NSTEMI) myocardial infarction Status: Acute (8) Acute on chronic renal insufficiency: Code(s): N28.9 - Disorder of kidney and ureter, unspecified; N18.9 - Chronic kidney disease, unspecified Status: Acute (9) Cardiomyopathy: Code(s): I42.9 - Cardiomyopathy, unspecified Status: Acute (10) Hypotension: Code(s): I95.9 - Hypotension, unspecified Status: Acute Plan As above mention patient was started on amiodarone infusion heparin infusion and Ildefonso-Synephrine infusion. I reviewed and evaluated the patient. Reviewed the chart labs imaging and spoke to internal medicine physician. Reviewed his old records from last hospitalization. I spoke to patient and his along with 2 children at bedside and had a long meeting. We went over patient's current status including ventricular tachycardia, coronary disease, echo and stress test feedings, goals of care and code status. Patient initially stated to me and other physicians along with the nursing staff that he only wants conservative care and does not want any CPR, invasive procedures or intubation mechanical ventilation. Specifically refused a central venous catheter placement for vasopressor infusion. I gave patient option of placing a PICC line discussed benefits and risks of PICC line is. Patient agreed PICC line stating that at least he would not have repeated needle sticks for blood draw but was adamant that he did not want any further electric shock or CPR and wanted treatment with only medication. Patient's and 2 children were at bedside and were agreeable with patient's wishes. After 20-30 minutes of discussion among themselves they told me the patient has decided that he would like to go home and does not want to continue any further treatment. I went back and confirmed with the patient and he verbalized the same stating that he does not believe this current treatment is going to make any major change in his eventual outcome or health status and he would rather go home and in peace. I explained to him that recurrence of ventricular tachycardia without treatment can be lethal and can lead to his . Patient states that he is accepting of his fate and would still like to go home and be comfortable food and does not want any further treatment with IV medications or testing. I have updated patient's code status in the chart and patient has been placed on comfort measures. Patient be started on regular diet and have labs, testing and medications that are not targeted towards comfort. Will consult transitional care nurse for hospice consult. Patient's and 2 children were at bedside who verbalized understanding of the plan and would agreeable with comfort care, hospice consult and going home on hospice. Total Critical Care Time -40 minutes Due to a high probability of clinically significant, life threatening deterioration, the patient required my highest level of preparedness to intervene emergently and I personally spent this critical care time directly and personally managing the patient. This critical care time included obtaining a history; examining the patient
--- NOTE | 2023-01-13 08:49 | P.PNCROSS_ITS ---
Event Note Event Note Event Note: I was called by the emergency room for this patient last night. Mr. Neville had a syncopal episode, and on EMS arrival he was in V-tach but apparently spontaneously converted. After arrival to the emergency room he had another episode of V-tach and was put on amiodarone. He had a sustained episode of V- tach and I reviewed the EKG which confirmed ventricular tachycardia. No STEMI. he was intermittently hypotensive but apparently conscious. I recommended cardioversion. There was some discussion with the family as initially the did not want any CPR, life support etc. I rec additional amio boluses and could try lidocaine, but I felt it likely the pt would with medical tx only and again recommended cardioversion. Eventually pt/family consented to a cardioversion which was successful. This morning he had another episode of ventricular tachycardia requiring another cardioversion. On reviewing the chart, the patient is actually Dr. Ceron's patient. We are consulted last week for possible cardiac catheterization but recommended against it because of his chronic kidney disease and lack of clear-cut ACS. I spoke to Dr. Ceron this a.m. who will assume care of the patient. However on my arrival to discuss this with the patient's nurses, he and the family decided for comfort measures. Discussed w/ Dr. Bergeron. Related this to Dr. Ceron. Will sign off.
[2023-01-13 10:13] LABS: Reflex Lactic Acid Yes or No Add Lactic
--- NOTE | 2023-01-22 07:16 | P.DS_ITS ---
DS: Admitting Diagnosis Discharge Date 01/13/23 Admitting Diagnosis v tach DS: Discharge Diagnosis Discharge Diagnosis (1) Ventricular tachycardia: Code(s): I47.20 - Ventricular tachycardia, unspecified Status: Acute DS: Summary Hospital Course Hospital Course: please refer to hospitalist progress notes for further detail. pt presented via SNF, found in [facility], requiring cardioversion. ultimately requiring cardioversion. However, he ultimately decided to pursue. discharged in stable condition back to SNF with hospice. Time Spent with Patient Time attestation: Total time spent providing and/or coordinating discharge services: Exam Const: General: cooperative and no acute distress Resp: Effort & Inspection: normal respiratory effort Auscultation: clear to auscultation bilaterally Cardio: Rate: regular rate Rhythm: regular rhythm Heart sounds: S1 normal heart sound present and S2 normal heart sound present GI: GI Palp: No abdominal tenderness Auscultation: normal bowel sounds Discharge Plan Discharge Attending physician on discharge: Jennifer Bergeron Consulting providers: Bertha Arcos; Bayron Ceron; Alvaro Kerr; Shankar Yao V. Discharging Clinician: Jennifer Bergeron Patient Disposition: Hospice - Medical Facility Activity: june shower Diet: as tolerated Stand Alone Forms: General Discharge Information Discharge Medications: Discontinued ascorbic acid (vitamin C) 1,000 mg tablet 1 gm PO DAILY aspirin 81 mg tablet,delayed release (DR/EC) 81 mg PO DAILY cyanocobalamin (vitamin B-12) 250 mcg lozenge 250 mcg PO DAILY metformin 500 mg tablet 500 mg PO BID omega-3 fatty acids 1,000 mg capsule 1,000 mg PO HS ropinirole 0.5 mg tablet 0.5 mg PO HS PRN (Reason: Restless Leg(S)) bumetanide 2 mg tablet 2 mg PO Q12H fluticasone propion-salmeterol 232-14 mcg/actuation aerosol powdr breath activated 2 inh INHALATION DAILY Jardiance 25 mg Tablet 25 mg PO DAILY Entresto 24-26 mg Tablet 0.5 tablet PO Q12H carvedilol [Coreg] 6.25 mg Tablet 6.25 mg PO Q12HR Qty: 90 0RF simvastatin 20 mg Tablet 40 mg PO QAM Qty: 90 0RF Date of admission: 01/13/23 00:12 Primary Care Provider: Suzette,Jerome Sloan Admitting Provider: Deepa Richards V. Attending physician on admission: Jennifer Bergeron Condition: Terminal
== END 2023-01-13 15:56 | disposition hospice, inpatient (51) | DRG 310 ==
LOC: ANHED 01-13 00:11 → ANHICU 01-13 13:31 → ANHIMU 01-15 11:57
PROVIDERS: Admitting Provider Internal Medicine; Emergency Provider Student in an Organized Health Care Education/Training Program; PCP Internal Medicine; Visit Provider General Practice
DX: I47.20 Ventricular tachycardia, unspecified (principal); E78.5 Hyperlipidemia, unspecified; G25.81 Restless legs syndrome; E11.22 Type 2 diabetes mellitus with diabetic chronic kidney disease; I25.10 Atherosclerotic heart disease of native coronary artery without angina pectoris; I13.10 Hypertensive heart and chronic kidney disease without heart failure, with stage 1 through stage 4 chronic kidney disease, or unspecified chronic kidney disease; I95.9 Hypotension, unspecified; M19.90 Unspecified osteoarthritis, unspecified site; N18.9 Chronic kidney disease, unspecified; R79.89 Other specified abnormal findings of blood chemistry; Z11.52 Encounter for screening for COVID-19; Z95.0 Presence of cardiac pacemaker; Z79.82 Long term (current) use of aspirin; Z79.84 Long term (current) use of oral hypoglycemic drugs
CPT/HCPCS: 36415; 71045; 80048; 80053; 82948; 83605; 83690; 83735; 84100; 84443; 84484; 85025; 85027; 85380; 85610; 85730; 86850; 86900; 86901; 87040; 87635; 87636; 92960; 93005; 94640; 96365; 97116; 97161; 97165; 97530; 97535; 99285; A9270; G0378; J0282; J1644; J1815; J2060; J2270; J2371; J7030; J7040; J7060